=== PATIENT | male | born 1970 | race Caucasian/White ===

== ENCOUNTER 2016-03-26 07:40 | Emergency (ER) | payer BC ==
[2016-03-26] MEDS ORDERED: ONDANSETRON HCL INJ/PF 4 MG/2 ML SDV IV ONE (08:18)
[2016-03-26] MEDS ORDERED: KETOROLAC TROMETHAMINE INJ/PF 30 MG/1 ML SDV IV ONE (08:18)
--- NOTE | 2016-03-26 08:19 | ER Document Report ---
ED GI/ - General Chief Complaint: Urinary Problem Stated Complaint: PAINFUL URINATION Mode of Arrival: Ambulatory Information source: Patient Notes: Patient complains of pain to right lower pelvic area that started around 6 this morning. Patient does report some urinary frequency and hematuria. Patient additionally complains of nausea but denies any vomiting or diarrhea. Patient denies any fever. Patient does report a previous history of kidney stones and is concerned about that today. Patient states he was last treated for kidney stones over 3 years ago. TRAVEL OUTSIDE OF THE [place] IN LAST 30 DAYS: No - HPI Patient complains to provider of: Abdominal pain. No: Testicular pain, Vomiting Onset: This morning Timing/Duration: Gradual Quality of pain: Achy Pain Level: 3 Location: RLQ Associated symptoms: Dysuria, Nausea, Urinary frequency. denies: Dizzy, Fever, Loss of appetite, Urinary hesitancy, Vomiting Exacerbated by: Denies Relieved by: Denies Similar symptoms previously: Yes - kidney stones Recently seen / treated by doctor: No - Related Data Allergies/Adverse Reactions: No Known Allergies Allergy (Verified 03/26/16 07:45) Past Medical History - General Information source: Patient - Social History Smoking Status: Never Smoker Chew tobacco use (# tins/day): No Frequency of alcohol use: None Drug Abuse: None Occupation: [employer] Family History: CAD - Father [place] at 40's. CAD, CABG Patient has suicidal ideation: No Patient has homicidal ideation: No - Past Medical History Cardiac Medical History: Reports: Hx Hypercholesterolemia, Hx Hypertension Pulmonary Medical History: Reports: Hx Asthma Denies: Hx Tuberculosis Renal/ Medical History: Reports: Hx Kidney Stones Psychiatric Medical History: Reports: Hx Anxiety Past Surgical History: Reports: Other - Vasectomy - Immunizations Hx Diphtheria, Pertussis, Tetanus Vaccination: Yes Review of Systems - Review of Systems Constitutional: No symptoms reported. denies: Fever, Recent illness EENT: No symptoms reported Cardiovascular: No symptoms reported Respiratory: No symptoms reported Gastrointestinal: Abdominal pain, Nausea. denies: Vomiting Genitourinary: Dysuria, Frequency, Flank pain, Hematuria Male Genitourinary: No symptoms reported Musculoskeletal: Back pain Skin: No symptoms reported Hematologic/Lymphatic: No symptoms reported Neurological/Psychological: No symptoms reported Physical Exam - Vital signs Vitals: Temp Pulse Resp BP Pulse Ox 97.8 F 67 18 150/93 H 96 03/26/16 07:46 03/26/16 07:46 03/26/16 07:46 03/26/16 07:46 03/26/16 07:46 - General General appearance: Appears well, Alert In distress: None - Respiratory Respiratory status: No respiratory distress Chest status: Nontender Breath sounds: Normal. No: Rales, Rhonchi, Stridor, Wheezing Chest palpation: Normal - Cardiovascular Rhythm: Regular Heart sounds: S1 appreciated, S2 appreciated Murmur: No - Abdominal Inspection: Obese Distension: No distension Bowel sounds: Normal Tenderness: Tender - Suprapubic, right lower pelvic tenderness. No: McBurney's point, Guarding Organomegaly: No organomegaly - Back Back: CVA tenderness - Mild right - Extremities General upper extremity: Normal inspection, Normal strength General lower extremity: Normal inspection, Normal strength - Neurological Neuro grossly intact: Yes Cognition: Normal Orientation: AAOx4 [place] Coma Scale Eye Opening: Spontaneous [place] Coma Scale Verbal: Oriented [place] Coma Scale Motor: Obeys Commands [place] Coma Scale Total: 15 - Psychological Associated symptoms: Normal affect, Normal mood - Skin Skin Temperature: Warm Skin Moisture: Dry Skin Color: Normal Course - Re-evaluation Re-evalutation: 03/26/16 10:14 pt reports pain improved after toradol injection. Pt states pain to right lower pelvis radiates to r flank. Pt declines additional pain medication at this time. 03/26/16 13:37 Patient with personal history of renal stones, patient with urinary frequency, hematuria, flank and right lower pelvic pain. Patient without McBurney's point tenderness. Patient's abdomen currently soft and nontender at this time. Suspect patient's symptoms most likely related to kidney stone. Patient given good return precautions and discussed worsening signs or symptoms that [facility] - Vital Signs Vital signs: Temp Pulse Resp BP Pulse Ox 97.7 F 58 L 20 121/73 99 03/26/16 12:55 03/26/16 12:55 03/26/16 12:55 03/26/16 12:55 03/26/16 12:55 - Laboratory Result Diagrams: 03/26/16 08:33 03/26/16 08:33 Laboratory results interpreted by me: 03/26/16 03/26/16 08:10 08:33 RBC 6.51 H MCV 76 L MCH 25.2 L RDW 17.3 H Urine Protein 100 H Urine Blood LARGE H Labs- Entire Visit 03/26/16 03/26/16 03/26/16 08:10 08:33 08:33 WBC 10.5 RBC 6.51 H Hgb 16.4 Hct 49.2 MCV 76 L MCH 25.2 L MCHC 33.4 RDW 17.3 H Plt Count 228 Seg Neutrophils % 73.4 Lymphocytes % 17.5 Monocytes % 8.3 Eosinophils % 0.3 Basophils % 0.5 Absolute Neutrophils 7.7 Absolute Lymphocytes 1.8 Absolute Monocytes 0.9 Absolute Eosinophils 0.0 Absolute Basophils 0.0 Sodium 142.8 Potassium 4.3 Chloride 101 Carbon Dioxide 30 Anion Gap 12 BUN 7 Creatinine 0.72 Est GFR ( Amer) > 60 Est GFR (Non-Af Amer) > 60 Glucose 108 Calcium 9.4 Total Bilirubin 0.4 Direct Bilirubin 0.0 AST 28 ALT 66 Alkaline Phosphatase 86 Total Protein 7.2 Albumin 4.0 Urine Color YELLOW Urine Appearance SLIGHTLY-CLOUDY Urine pH 5.0 Ur Specific [place] 1.029 Urine Protein 100 H Urine Glucose (UA) NEGATIVE Urine Ketones NEGATIVE Urine Blood LARGE H Urine Nitrite NEGATIVE Urine Bilirubin NEGATIVE Urine Urobilinogen NEGATIVE Ur Leukocyte Esterase NEGATIVE Urine WBC (Auto) 4 Urine RBC (Auto) 99 Squamous Epi Cells Auto 2 Urine Mucus (Auto) MANY Urine Ascorbic Acid NEGATIVE 03/26/16 15:59 - Diagnostic Test Radiology reviewed: Reports reviewed Discharge - Discharge Clinical Impression: Hematuria, History of kidney stones, Flank pain Abdominal pain Qualifiers: Abdominal location: unspecified location Qualified Code(s): R10.9 - Unspecified abdominal pain Condition: Stable Disposition: HOME, SELF-CARE Instructions: Observation for Appendicitis ([facility]), Flank Pain ([facility]) Additional Instructions: Return immediately for any new or worsening symptoms Followup with your primary care provider, call tomorrow to make a followup appointment Follow up with a urologist for further evaluation, call today to make a follow- up appointment Your blood pressure was elevated today, recheck with her primary doctor in 1-2 days to have this reevaluated KIDNEY STONE: You are passing or have passed a kidney stone. These stones are usually due to increased calcium or uric acid concentrations in your urine. Stones within the kidney itself are not painful. The pain occurs as the stone leaves the kidney to pass down the long tube, called the ureter, leading to the bladder. If the stone is small, it will usually pass by itself. Most patients can pass the stone at home. You will usually receive medications for pain, nausea or vomiting, and sometimes a medication to assist in passing the kidney stone. However, if the pain is very severe or if vomiting prevents you from taking oral pain medications, you may need to return for further treatment. Drink three or four quarts of fluids per day. You will be given pain medication (if needed) and urine strainers. Strain all your urine to see if the stone passes. If your doctor has asked you to bring the stone in for analysis, return with the stone once it has passed. Return if pain or vomiting become severe, if you develop a high fever, if you are unable to pass your urine, or if other unusual symptoms occur. TORADOL INJECTION: You have been given an injection of ketorolac tromethamine (Toradol). This is an excellent, safe drug for pain control. It also has potent antiinflammatory action. You should have significant pain relief within about one hour. Toradol is not addicting and is non-sedating. It does not interfere with driving or work. Call or return if you develop itching, hives, shortness of breath, or rash. ANTINAUSEA MEDICATION: You have been given a medication to suppress nausea and vomiting. This type of medication can be given as a shot, pill, or suppository. It will usually last for many hours. Pills and shots usually last six to eight hours, suppositories last about 12 hours. For the typical illness, only one or two doses of the medication may be necessary. Mild lightheadedness may occur. This type of medicine can cause drowsiness. Do not drive or operate dangerous machinery while under its influence. Do not mix with alcohol. See your doctor at once if you have muscle spasms or tightness, or uncontrollable motions (particularly of the neck, mouth, or jaw). Persistent vomiting or severe lightheadedness should also be evaluated by the physician. ORAL NARCOTIC MEDICATION: You have been given a prescription for pain control. This medication is a narcotic. It's best taken with food, as nausea can result if taken on an empty stomach. Don't operate machinery or drive within six hours of taking this medication. Do not combine this medicine with alcohol, or with any medication which can cause sedation (such as cold tablets or sleeping pills) unless you get permission from the physician. Narcotics tend to cause constipation. If possible, drink plenty of fluids and eat a diet high in fiber and fruits. Please be aware that prescription narcotics also have the potential for abuse. People become addicted to these medications because of the general sense of wellbeing that they induce. This feeling along with a significant reduction in tension, anxiety, and aggression provides a stimulating seductive quality to these drugs. Once your pain is under control, we encourage you to discard your unused narcotics. FOLLOW-UP CARE: If you have been referred to a physician for follow-up care, call the physician s office for an appointment as you were instructed or within the next two days. If you experience worsening or a significant change in your symptoms, notify the physician immediately or return to the Emergency Department at any time for re-evaluation. Prescriptions: Ondansetron HCl [Zofran 4 mg Tablet] 1 - 2 tab PO Q6 PRN #15 tablet PRN Reason: Oxycodone HCl/Acetaminophen [Percocet 5-325 mg Tablet] 1 tab PO ASDIR PRN #15 tablet PRN Reason: Forms: Return to Work Referrals: [facility] [Provider Group] - Follow up as needed ADOLFO WILLARD MD [ACTIVE STAFF] - Follow up in 3-5 days [facility] [Provider Group] - Follow up tomorrow
[2016-03-26 08:45] LABS: APPEARANCE,URINE SLIGHTLY-CLOUDY; BILIRUBIN,URINE NEGATIVE (NEGATIVE); GLUCOSE, URINE NEGATIVE (NEGATIVE)
[2016-03-26 08:46] LABS: KETONES,URINE NEGATIVE (NEGATIVE); LEUKOCYTE ESTERASE,URINE NEGATIVE (NEGATIVE); NITRITE,URINE NEGATIVE (NEGATIVE); PROTEIN,URINE 100 mg/dL (NEGATIVE); URINE SPECIFIC GRAVITY 1.029; UROBILINOGEN,URINE NEGATIVE mg/dL (<2.0)
[2016-03-26 08:52] LABS: ABSOLUTE LYMPHOCYTES (AUTO) 1.8 10^3/uL (0.5-4.7); ABSOLUTE MONOCYTES (AUTO) 0.9 10^3/uL (0.1-1.4); ABSOLUTE NEUT (AUTO) 7.7 10^3/uL (1.7-8.2); BASOPHILS % (AUTO) 0.5 % (0-2); EOSINOPHILS % (AUTO) 0.3 % (0-6); HEMATOCRIT 49.2 % (37.9-51.0); HEMOGLOBIN 16.4 g/dL (13.5-17.0); LYMPHOCYTES % (AUTO) 17.5 % (13-45); MEAN CORPUSCULAR HEMOGLOBIN 25.2 pg (27.0-33.4); MEAN CORPUSCULAR HGB CONC 33.4 g/dL (32.0-36.0); MEAN CORPUSCULAR VOLUME 76 fl (80-97); MONOCYTES % (AUTO) 8.3 % (3-13); RED BLOOD COUNT 6.51 10^6/uL (4.35-5.55); RED CELL DISTRIBUTION WIDTH 17.3 % (11.5-14.0); SEGMENTED NEUTROPHILS % (AUTO) 73.4 % (42-78); WHITE BLOOD COUNT 10.5 10^3/uL (4.0-10.5)
[2016-03-26 09:16] LABS: ALANINE AMINOTRANSFERASE 66 U/L (21-72); ALKALINE PHOSPHATASE 86 U/L (38-126); ANION GAP 12 (5-19); ASPARTATE AMINO TRANSFERASE 28 U/L (17-59); BILIRUBIN,TOTAL 0.4 mg/dL (0.2-1.3); BLOOD UREA NITROGEN 7 mg/dL (7-20); CALCIUM 9.4 mg/dL (8.4-10.2); CARBON DIOXIDE 30 mmol/L (22-30); CHLORIDE 101 mmol/L (98-107); CREATININE RESULT 0.72 mg/dL (0.52-1.25); GLUCOSE 108 mg/dL (75-110); POTASSIUM 4.3 mmol/L (3.6-5.0); SODIUM 142.8 mmol/L (137-145); TOTAL PROTEIN 7.2 g/dL (6.3-8.2)
[2016-03-26] MEDS ORDERED: NORMAL SALINE 1000 ML 1,000 ML IV ONE (11:06)
[2016-03-26 12:56] VITALS: BP 121/73
== END 2016-03-26 14:04 | disposition home or self-care (01) ==
LOC: ER 07:40
DX: R31.9 Hematuria, unspecified (principal); R10.9 Unspecified abdominal pain; R30.0 Dysuria; R35.0 Frequency of micturition; R11.0 Nausea; I10 Essential (primary) hypertension; E78.00 Pure hypercholesterolemia, unspecified; Z87.442 Personal history of urinary calculi
CPT/HCPCS: 99284; 96361; 96374; 96375; 36415; 85025; 80053; 81001; 76770; J1885; J2405; J7030

== ENCOUNTER 2016-12-13 15:51 | Emergency (ER) | payer BC ==
--- NOTE | 2016-12-13 17:01 | ER Document Report ---
ED Medical Screen (RME) - General Chief Complaint: Chest Pain Stated Complaint: CHEST PAIN Time Seen by Provider: 12/13/16 17:00 Notes: Patient reports constant left-sided chest pain since Saturday. States it is worse with exertion. And better with rest. He states he has no previous history of cardiac disease. He has had a negative stress test in the past approximately 3 years ago. TRAVEL OUTSIDE OF THE [place] IN LAST 30 DAYS: No - Related Data Allergies/Adverse Reactions: No Known Allergies Allergy (Verified 12/13/16 16:01) Past Medical History - Social History Chew tobacco use (# tins/day): No Frequency of alcohol use: Social Drug Abuse: None - Past Medical History Cardiac Medical History: Reports: Hx Hypercholesterolemia, Hx Hypertension Pulmonary Medical History: Reports: Hx Asthma Denies: Hx Tuberculosis Renal/ Medical History: Reports: Hx Kidney Stones. Denies: Hx Peritoneal Dialysis Psychiatric Medical History: Reports: Hx Anxiety Past Surgical History: Reports: Other - Vasectomy - Immunizations Hx Diphtheria, Pertussis, Tetanus Vaccination: No Physical Exam - Vital signs Vitals: Temp Pulse Resp BP Pulse Ox 99.2 F 99 18 163/90 H 97 12/13/16 16:07 12/13/16 16:07 12/13/16 16:07 12/13/16 16:07 12/13/16 16:07 Course - Vital Signs Vital signs: Temp Pulse Resp BP Pulse Ox 99.2 F 99 18 163/90 H 97 12/13/16 16:07 12/13/16 16:07 12/13/16 16:07 12/13/16 16:07 12/13/16 16:07
[2016-12-13 17:25] LABS: ABSOLUTE BASOPHILS # (AUTO) 0.1 10^3/uL (0.0-0.2); ABSOLUTE MONOCYTES (AUTO) 1.2 10^3/uL (0.1-1.4); ABSOLUTE NEUT (AUTO) 8.3 10^3/uL (1.7-8.2); BASOPHILS % (AUTO) 0.6 % (0-2); EOSINOPHILS % (AUTO) 0.2 % (0-6); HEMATOCRIT 40.8 % (37.9-51.0); HEMOGLOBIN 13.7 g/dL (13.5-17.0); HGB HCT DIFFERENCE 0.3; LYMPHOCYTES % (AUTO) 24.2 % (13-45); MEAN CORPUSCULAR HEMOGLOBIN 25.6 pg (27.0-33.4); MEAN CORPUSCULAR HGB CONC 33.6 g/dL (32.0-36.0); MEAN CORPUSCULAR VOLUME 76 fl (80-97); MONOCYTES % (AUTO) 9.3 % (3-13); RED BLOOD COUNT 5.37 10^6/uL (4.35-5.55); RED CELL DISTRIBUTION WIDTH 16.1 % (11.5-14.0); SEGMENTED NEUTROPHILS % (AUTO) 65.7 % (42-78); WHITE BLOOD COUNT 12.6 10^3/uL (4.0-10.5)
--- NOTE | 2016-12-13 17:33 | RADIOLOGY REPORT (SQ) ---
EXAM DESCRIPTION: CHEST PA/LAT COMPLETED DATE/TIME: 12/13/2016 5:09 pm REASON FOR STUDY: cp COMPARISON: 02/19/2014 EXAM PARAMETERS: NUMBER OF VIEWS: two views TECHNIQUE: Digital Frontal and Lateral radiographic views of the chest acquired. RADIATION DOSE: NA LIMITATIONS: none FINDINGS: LUNGS AND PLEURA: No opacities, masses or pneumothorax. No pleural effusion. MEDIASTINUM AND HILAR STRUCTURES: No masses or contour abnormalities. HEART AND VASCULAR STRUCTURES: Heart normal size. No evidence for failure. BONES: No acute findings. HARDWARE: None in the chest. OTHER: No other significant finding. IMPRESSION: NO SIGNIFICANT RADIOGRAPHIC FINDING IN THE CHEST. TECHNICAL DOCUMENTATION: JOB ID: [id number] [employer]- All Rights Reserved
[2016-12-13 17:39] LABS: ALANINE AMINOTRANSFERASE 44 U/L (21-72); ALBUMIN 4.4 g/dL (3.5-5.0); ALKALINE PHOSPHATASE 86 U/L (38-126); ANION GAP 13 (5-19); ASPARTATE AMINO TRANSFERASE 17 U/L (17-59); BILIRUBIN,DIRECT 0.3 mg/dL (0.0-0.4); BILIRUBIN,TOTAL 0.4 mg/dL (0.2-1.3); BLOOD UREA NITROGEN 11 mg/dL (7-20); CALCIUM 9.3 mg/dL (8.4-10.2); CARBON DIOXIDE 23 mmol/L (22-30); CHLORIDE 106 mmol/L (98-107); CREATININE RESULT 0.69 mg/dL (0.52-1.25); GLUCOSE 112 mg/dL (75-110); POTASSIUM 3.6 mmol/L (3.6-5.0); SODIUM 141.5 mmol/L (137-145); TOTAL PROTEIN 7.1 g/dL (6.3-8.2)
--- NOTE | 2016-12-13 18:28 | ER Document Report ---
ED Cardiac - General Chief Complaint: Chest Pain Stated Complaint: CHEST PAIN Time Seen by Provider: 12/13/16 17:00 Notes: The patient is a 46-year-old male, past medical history hypertension, HLD, presents with 1 week of intermittent left-sided chest pain that feels like a pounding sensation. Today he started to feel nauseous. He had similar symptoms 3 years ago and had a negative stress test at that time. Took a baby ASA earlier today Patient denies shortness of breath, leg swelling, cough, vomiting, abdominal pain, fevers, hemoptysis or back pain. TRAVEL OUTSIDE OF THE [place] IN LAST 30 DAYS: No - Related Data Allergies/Adverse Reactions: No Known Allergies Allergy (Verified 12/13/16 16:01) Past Medical History - General Information source: Patient - Social History Smoking Status: Never Smoker Chew tobacco use (# tins/day): No Frequency of alcohol use: Social Drug Abuse: None Family History: CAD - Father [place] at 40's. CAD, CABG - Past Medical History Cardiac Medical History: Reports: Hx Hypercholesterolemia, Hx Hypertension Pulmonary Medical History: Reports: Hx Asthma Denies: Hx Tuberculosis Renal/ Medical History: Reports: Hx Kidney Stones. Denies: Hx Peritoneal Dialysis Psychiatric Medical History: Reports: Hx Anxiety Past Surgical History: Reports: Other - Vasectomy - Immunizations Hx Diphtheria, Pertussis, Tetanus Vaccination: No Review of Systems - Review of Systems Notes: REVIEW OF SYSTEMS: CONSTITUTIONAL: -fevers, -chills EENT: -eye pain, -difficulty swallowing, -nasal congestion CARDIOVASCULAR: +chest pain, -syncope. RESPIRATORY: -cough, -SOB GASTROINTESTINAL: -abdominal pain, +nausea, -vomiting, -diarrhea GENITOURINARY: -dysuria, -hematuria MUSCULOSKELETAL: -back pain, -neck pain SKIN: -rash or skin lesions. HEMATOLOGIC: -easy bruising or bleeding. LYMPHATIC: -swollen, enlarged glands. NEUROLOGICAL: -altered mental status or loss of consciousness, -headache, - neurologic symptoms PSYCHIATRIC: -anxiety, -depression. ALL OTHER SYSTEMS REVIEWED AND NEGATIVE. Physical Exam - Vital signs Vitals: Temp Pulse Resp BP Pulse Ox 99.2 F 99 18 163/90 H 97 12/13/16 16:07 12/13/16 16:07 12/13/16 16:07 12/13/16 16:07 12/13/16 16:07 - Notes Notes: PHYSICAL EXAMINATION: GENERAL: Well-appearing, well-nourished and in no acute distress. HEAD: Atraumatic, normocephalic. EYES: Pupils equal round and reactive to light, extraocular movements intact, sclera anicteric, conjunctiva are normal. ENT: nares patent, oropharynx clear without exudates. Moist mucous membranes. NECK: Normal range of motion, supple without lymphadenopathy LUNGS: Breath sounds clear to auscultation bilaterally and equal. No wheezes rales or rhonchi. HEART: Regular rate and rhythm without murmurs ABDOMEN: Soft, nontender, normoactive bowel sounds. No guarding, no rebound. No masses appreciated. EXTREMITIES: Normal range of motion, no pitting or edema. No cyanosis. NEUROLOGICAL: Cranial nerves grossly intact. Normal speech, normal gait. Normal sensory and motor exams. PSYCH: Normal mood, normal affect. SKIN: Warm, Dry, normal turgor, no rashes or lesions noted. Course - Re-evaluation Re-evalutation: Patient appears well. His HEART score is 3. CXR and labs are unremarkable. He is PERC negative and symptoms are atypical for aortic dissection at this time. Instructed patient that he must follow-up with his primary care physician and mortar carrier for a stress test tomorrow. Given very strict return precautions and he understands. - Vital Signs Vital signs: Temp Pulse Resp BP Pulse Ox 99.2 F 99 19 111/68 97 12/13/16 16:07 12/13/16 16:07 12/13/16 19:16 12/13/16 19:16 12/13/16 19:16 - Laboratory Result Diagrams: 12/13/16 17:05 12/13/16 17:05 Laboratory results interpreted by me: 12/13/16 12/13/16 17:05 17:05 WBC 12.6 H MCV 76 L MCH 25.6 L RDW 16.1 H Absolute Neutrophils 8.3 H Glucose 112 H - Diagnostic Test Radiology reviewed: Image reviewed, Reports reviewed Radiology results interpreted by me: CXR: NAD - EKG Interpretation by Me EKG shows normal: Sinus rhythm, [place], Intervals, QRS Complexes, ST-T Waves Rate: Normal When compared to previous EKG there are: No significant change Discharge - Discharge Clinical Impression: Chest pain Qualifiers: Chest pain type: unspecified Qualified Code(s): R07.9 - Chest pain, unspecified Condition: Stable Disposition: HOME, SELF-CARE Additional Instructions: You must follow-up with your primary care physician and mortar carrier tomorrow for further evaluation and treatment, including a stress test. CHEST PAIN OF UNCLEAR CAUSE: The exact cause of your chest pain isn't clear. Fortunately, there is no evidence of a dangerous medical condition. Further testing may be required to find the source of the pain. Most often, we find that this pain is coming from the chest wall -- the muscles or rib joints in the chest. But chest pain can come from the lung and lung lining, the esophagus, the heart valves or heart lining, and even the stomach or gallbladder. Rest. Eat lightly until the pain is gone. We may prescribe medicine for pain and inflammation. You should call the physician immediately if the pain radiates to the shoulder, jaw or arms; if you start to run a fever or develop a cough; or if you develop shortness of breath, or other new or alarming symptoms. NORMAL EXAM AND WORKUP: At this time, your examination and workup show no significant abnormality. No significant abnormal physical findings were noted. All laboratory, EKG, and imaging (x-ray, CT scans, ultrasound) studies that were ordered show no significant abnormality. Although your examination and all studies that were ordered showed no significant abnormal finding, there are no examinations and no studies that are 100% accurate. There is always the possibility that some abnormality could exist and not be detected with physical examination or within the limits and capabilities of laboratory and other studies. You should return or follow up as you were instructed on your visit today for further evaluation if your symptoms do not resolve. CHEST WALL PAIN: Your chest pain may be coming from the chest wall. This is often caused by straining the muscles or joints in the chest during physical activity, direct trauma, coughing, or vigorous vomiting. Persons with arthritis are especially prone to this type of pain, due to inflammation of the cartilage joints near the breast bone. Occasionally, no cause can be found. Rest from strenuous physical activity. This kind of chest pain is usually made worse by movement of the chest. Depending on the symptoms, we may prescribe medicine for pain, muscle relaxation, and antiinflammatory effects. If the pain is new, and seems to be due to muscle strain, cold packs can help. Otherwise, apply gentle warmth to the painful area for 15 minutes every hour or two. You should call contact the doctor immediately if things change. Further evaluation is needed if you develop a fever or cough, if the nature of the pain changes, or if you become short of breath. ANGINA EPISODE: Your physician has diagnosed the pain you experienced as an episode of angina. Angina occurs when a portion of the heart muscle temporarily lacks oxygen. It does not cause any permanent heart damage, but serves as a warning. Hospitalization is not necessary now. Evaluation of your cardiac condition , and medical therapy for angina will be necessary. It's important you be sure to keep all appointments and take medication exactly as prescribed. Angina is usually treated with a type of "nitrate" medication. This is available as ointment, pills, or sublingual (under the tongue) tablets. Depending on your clinical situation, other medications may be added to help control angina. These may include beta blockers or calcium blockers. If episodes of angina are occurring with increased frequency, or if chest pain lasts longer than 15 minutes or does not respond to nitroglycerin, you must seek emergency medical care immediately. ASPIRIN: Aspirin has been shown to have a beneficial effect on blood circulation by reducing the clotting effect of platelets in the blood. These beneficial effects can be achieved by taking just a single baby (81 mg) aspirin a day. It is recommended that any person over the age of forty take a single baby aspirin every day for heart and brain circulation, unless you are allergic to aspirin or have some significant bleeding disorder. It is strongly recommended that people who have proven cardiac or blood circulation disturbances should take a baby aspirin every day. NITRATES: Nitroglycerin and related longer-acting nitrate medications are used to prevent or treat attacks of angina. These medicines dilate blood vessels, decreasing the work of the heart, and improving its supply of oxygen. Many different forms are available, including sublingual tablets (used under the tongue), sprays, skin patches, and long-acting pills. If the particular form of medication you have been given is not working well for you, contact your doctor. Long-acting forms: Take exactly as prescribed. Sudden stopping of medication can provoke increased attacks. Sublingual tabs or spray: A headache will usually occur with use. Sit or lie while waiting for the pain to go away. If angina doesn't respond to three doses (five minutes apart), call for emergency assistance. FOLLOW-UP CARE: If you have been referred to a physician for follow-up care, call the physician s office for an appointment as you were instructed or within the next two days. If you experience worsening or a significant change in your symptoms, notify the physician immediately or return to the Emergency Department at any time for re-evaluation. Forms: Return to Work, Parent Work Note Referrals: JACY GREGORY MD [ACTIVE STAFF] - Follow up as needed
[2016-12-13] MEDS ORDERED: ASPIRIN 81 MG TABLET, CHEWABLE PO ONE (18:33)
[2016-12-13] MEDS ORDERED: ONDANSETRON 4 MG TAB.RAPDIS PO ONE (18:33)
[2016-12-13] MEDS ORDERED: NITROGLYCERIN 0.4 MG/TAB 25 TAB/BOTTLE SL PRN (18:33)
[2016-12-13 20:50] VITALS: BP 120/76
--- NOTE | 2016-12-14 03:56 | EKG REPORT ---
SEVERITY:- BORDERLINE ECG - SINUS RHYTHM BORDERLINE T WAVE ABNORMALITIES : Confirmed by: Lashawn Wynn MD 14-Dec-2016 03:56:01
== END 2016-12-13 20:42 | disposition home or self-care (01) ==
LOC: ER 15:51
DX: R07.9 Chest pain, unspecified (principal); I10 Essential (primary) hypertension; E78.5 Hyperlipidemia, unspecified
CPT/HCPCS: 93005; 99285; 36415; 85025; 80053; 84484; 71020; 93010; S0119

== ENCOUNTER 2018-01-12 16:17 | Emergency (ER) | payer BC ==
[2018-01-12] MEDS ORDERED: ASPIRIN 81 MG TABLET, CHEWABLE PO ONE (16:40)
[2018-01-12 16:54] LABS: ABSOLUTE BASOPHILS # (AUTO) 0.1 10^3/uL (0.0-0.2); ABSOLUTE EOSINOPHILS # (AUTO) 0.1 10^3/uL (0.0-0.6); ABSOLUTE MONOCYTES (AUTO) 1.1 10^3/uL (0.1-1.4); ABSOLUTE NEUT (AUTO) 6.8 10^3/uL (1.7-8.2); BASOPHILS % (AUTO) 0.7 % (0-2); HEMATOCRIT 44.3 % (37.9-51.0); HEMOGLOBIN 14.2 g/dL (13.5-17.0); LYMPHOCYTES % (AUTO) 19.6 % (13-45); MEAN CORPUSCULAR HEMOGLOBIN 22.1 pg (27.0-33.4); MEAN CORPUSCULAR HGB CONC 32.1 g/dL (32.0-36.0); MEAN CORPUSCULAR VOLUME 69 fl (80-97); PLATELET COUNT 270 10^3/uL (150-450); RED BLOOD COUNT 6.44 10^6/uL (4.35-5.55); SEGMENTED NEUTROPHILS % (AUTO) 67.7 % (42-78); TOTAL CELLS COUNTED % (AUTO) 100 %; WHITE BLOOD COUNT 10.1 10^3/uL (4.0-10.5)
[2018-01-12 17:18] LABS: ALANINE AMINOTRANSFERASE 49 U/L (21-72); ALBUMIN 4.2 g/dL (3.5-5.0); ALKALINE PHOSPHATASE 86 U/L (38-126); ANION GAP 14 (5-19); ASPARTATE AMINO TRANSFERASE 33 U/L (17-59); BILIRUBIN,DIRECT 0.2 mg/dL (0.0-0.4); BILIRUBIN,TOTAL 0.5 mg/dL (0.2-1.3); BLOOD UREA NITROGEN 9 mg/dL (7-20); CALCIUM 9.5 mg/dL (8.4-10.2); CARBON DIOXIDE 24 mmol/L (22-30); CHLORIDE 104 mmol/L (98-107); CREATINE KINASE 53 U/L (55-170); GLUCOSE 118 mg/dL (75-110); POTASSIUM 4.2 mmol/L (3.6-5.0); SODIUM 141.9 mmol/L (137-145); TOTAL PROTEIN 7.5 g/dL (6.3-8.2)
--- NOTE | 2018-01-12 17:24 | RADIOLOGY REPORT (SQ) ---
EXAM DESCRIPTION: CHEST SINGLE VIEW COMPLETED DATE/TIME: 01/12/2018 5:06 pm REASON FOR STUDY: cp COMPARISON: Chest x-ray 12/13/2016. EXAM PARAMETERS: NUMBER OF VIEWS: One view. TECHNIQUE: Single frontal radiographic view of the chest acquired. RADIATION DOSE: NA LIMITATIONS: None. FINDINGS: LUNGS AND PLEURA: No consolidation, pneumothorax or pleural effusion. MEDIASTINUM AND HILAR STRUCTURES: No masses. Contour normal. HEART AND VASCULAR STRUCTURES: Heart normal in size. Normal vasculature. BONES: No acute findings. HARDWARE: None in the chest. IMPRESSION: NO ACUTE RADIOGRAPHIC FINDING IN THE CHEST. TECHNICAL DOCUMENTATION: JOB ID: [id number] [employer]- All Rights Reserved Reading location - IP/workstation name: [email or web address]
[2018-01-12 17:31] LABS: TROPONIN I < 0.012 ng/mL
--- NOTE | 2018-01-12 17:42 | ER Document Report ---
ED General - General Mode of Arrival: Ambulatory Information source: Patient TRAVEL OUTSIDE OF THE [place] IN LAST 30 DAYS: No <MARISELA YEAGER - Last Filed: 01/12/18 19:28> <[place] - Last Filed: 01/12/18 23:38> - General Chief Complaint: Chest Pain Stated Complaint: CHEST PAIN Time Seen by Provider: 01/12/18 17:11 Notes: Patient is a 47 year old male presenting to the emergency department complaining of chest pain onset today and general malaise onset last night. Patient states he was not feeling well last night and developed chest pain this morning. He states he was originally very tired when he got up this morning and began to have constant sternal chest pain described as aching that radiated into his left arm. He states he then took a shower when he became so fatigued he laid on the shower floor. Patient currently describes his chest pain as a 5/ 10. He also complains of nausea and diaphoresis. He denies any shortness of breath. Patient mentions having a stress test performed last year by Dr. Hunt in [place] which proved to be normal. He mentions his father having his first TN at the age of 40. (MARISELA YEAGER) - Related Data Allergies/Adverse Reactions: No Known Allergies Allergy (Verified 12/13/16 16:01) Past Medical History - General Information source: Patient - Social History Smoking Status: Never Smoker Cigarette use (# per day): No Chew tobacco use (# tins/day): No Frequency of alcohol use: Occasional Drug Abuse: None Family History: CAD - Father [place] at 40's. CAD, CABG Patient has suicidal ideation: No Patient has homicidal ideation: No - Past Medical History Cardiac Medical History: Reports: Hx Hypercholesterolemia, Hx Hypertension Pulmonary Medical History: Reports: Hx Asthma Renal/ Medical History: Reports: Hx Kidney Stones Psychiatric Medical History: Reports: Hx Anxiety Past Surgical History: Reports: Other - Vasectomy - Immunizations Hx Diphtheria, Pertussis, Tetanus Vaccination: No <MARISELA YEAGER - Last Filed: 01/12/18 19:28> Review of Systems - Review of Systems Constitutional: See HPI, Diaphoresis EENT: No symptoms reported Cardiovascular: No symptoms reported, See HPI, Chest pain Respiratory: No symptoms reported Gastrointestinal: See HPI, Nausea Genitourinary: No symptoms reported Male Genitourinary: No symptoms reported Musculoskeletal: See HPI Skin: No symptoms reported Hematologic/Lymphatic: No symptoms reported Neurological/Psychological: No symptoms reported -: Yes All other systems reviewed and negative <MARISELA YEAGER - Last Filed: 01/12/18 19:28> Physical Exam <MARISELA YEAGER - Last Filed: 01/12/18 19:28> <LUKE MARTINEZ - Last Filed: 01/12/18 23:38> - Vital signs Vitals: Temp Pulse Resp BP Pulse Ox 98.2 F 94 18 169/89 H 96 01/12/18 16:27 01/12/18 16:27 01/12/18 16:27 01/12/18 16:27 01/12/18 16:27 - Notes Notes: GENERAL: Alert, interacts well. No acute distress. HEAD: Normocephalic, atraumatic. EYES: Pupils equal, round, and reactive to light. Extraocular movements intact. ENT: Oral mucosa moist, tongue midline. NECK: Full range of motion. Supple. Trachea midline. LUNGS: Clear to auscultation bilaterally, no wheezes, rales, or rhonchi. No respiratory distress. Reproducible tenderness to palpation to the sternum and left ribs. HEART: Mild tachycardia. No murmurs, gallops, or rubs. ABDOMEN: Soft, mild epigastric tenderness to palpation. Non-distended. Bowel sounds present in all 4 quadrants. EXTREMITIES: Moves all 4 extremities spontaneously. Trace pitting edema BLE, radial and dorsalis pedis pulses 2/4 bilaterally. No cyanosis. NEUROLOGICAL: Alert and oriented x3. Normal speech. PSYCH: Normal affect, normal mood. SKIN: Warm, dry, normal turgor. No rashes or lesions noted. (MARISELA YEAGER) Course - Laboratory Result Diagrams: 01/12/18 16:40 01/12/18 16:40 <MARISELA YEAGER - Last Filed: 01/12/18 19:28> - Laboratory Result Diagrams: 01/12/18 16:40 01/12/18 16:40 <LUKE MARTINEZ - Last Filed: 01/12/18 23:38> - Re-evaluation Re-evalutation: 01/12/18 22:16 CBC unremarkable, CMP shows unremarkable, cardiac enzymes negative x2, chest x- ray shows no acute process, EKG is nonischemic x2. Pain is persistent after 3 nitroglycerin, he has developed some nausea as well. Patient will be given Zofran and a GI cocktail. GI cocktail did help with his pain and now he just feels tired. 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 Patient was offered observation for a stress test or outpatient stress test, patient will prefer to set up a stress test as an outpatient. Patient is instructed to take ibuprofen 800 mg every 8 hours for the reproducible left-sided chest pain that I suspect is costochondritis but given his risk factors he understands why I think it is prudent to have a stress test performed in the next week. Patient is also instructed to take Zantac 150 mg twice a day until seen by cardiology given the relief that he got from a GI cocktail. (LUKE MARTINEZ) - Vital Signs Vital signs: Temp Pulse Resp BP Pulse Ox 97.6 F 94 19 140/83 H 99 01/12/18 22:57 01/12/18 16:27 01/12/18 22:53 01/12/18 22:54 01/12/18 22:53 - Laboratory Laboratory results interpreted by me: 01/12/18 01/12/18 16:40 16:40 RBC 6.44 H MCV 69 L MCH 22.1 L RDW 20.0 H Glucose 118 H Creatine Kinase 53 L - EKG Interpretation by Me Additional EKG results interpreted by me: 01/12/18 22:18 EKG at 1621 shows sinus rhythm at a rate of 86, normal axis, normal intervals, no ST segment shins, there is T wave flattening in lead III per my interpretation. Repeat EKG at 2141 shows sinus rhythm at a rate of 65, normal axis, normal intervals, no ST segment elevations or depressions, T wave flattening in lead III and aVF per my interpretation. (LUKE MARTINEZ) Discharge <MARISELA YEAGER - Last Filed: 01/12/18 19:28> <LUKE MARTINEZ - Last Filed: 01/12/18 23:38> - Discharge Clinical Impression: Left sided chest pain Condition: Stable Disposition: HOME, SELF-CARE Additional Instructions: I do not know what exactly is causing her chest pain. Tonight we did not see any signs of a heart attack however you do have risk factors for heart disease. It is very important that you follow-up with your primary care physician and her plant pathology teacher and have a stress test within the next week. Please return if your chest pain worsens. Your pain did get better with GI cocktail, you should take Zantac 150 mg twice a day, you may use its generic equivalent, until you see your plant pathology teacher. Your pain was reproducible on examination, you may also have costochondritis which is inflammation of your ribs where they meet your sternum. This can be relieved by ibuprofen 800 mg every 8 hours for the next 4 days. Forms: Return to Work Referrals: TALAT BARRERA MD [Primary Care Provider] - Follow up in 3-5 days Scribe Attestation: 01/12/18 23:38 I personally performed the services described in the documentation, reviewed and edited the documentation which was dictated to the scribe in my presence, and it accurately records my words and actions. (LUKE MARTINEZ) Scribe Documentation - Scribe Written by Wiliam:: Wiliam Dolan, 01/12/2018 18:37 acting as scribe for :: Jana <MARISELA YEAGER - Last Filed: 01/12/18 19:28>
[2018-01-12] MEDS: NITROGLYCERIN 0.4 MG/TAB 25 TAB/BOTTLE SL PRN ×3 (18:07→18:58)
[2018-01-12] MEDS ORDERED: ACETAMINOPHEN 325 MG TABLET PO ONE (18:10)
[2018-01-12] MEDS ORDERED: MAG HYDROX/AL HYDROX/SIMETH SUSP 30 ML UDCUP PO ONE (21:23)
[2018-01-12] MEDS ORDERED: ONDANSETRON HCL INJ/PF 4 MG/2 ML SDV IV ONE (21:23)
[2018-01-12] MEDS ORDERED: LIDOCAINE 2% VISCOUS SOLN 20 ML UDCUP PO ONE (21:23)
[2018-01-12] MEDS ORDERED: METOCLOPRAMIDE HCL ORAL SOLN 10 MG/10 ML UDCUP PO ONE (21:23)
--- NOTE | 2018-01-12 22:05 | EKG REPORT ---
SEVERITY:- NORMAL ECG - SINUS RHYTHM : Confirmed by: Miriam Ortega 12-Jan-2018 22:04:30
--- NOTE | 2018-01-12 22:05 | EKG REPORT ---
SEVERITY:- NORMAL ECG - SINUS RHYTHM : Confirmed by: Miriam Ortega 12-Jan-2018 22:04:17
[2018-01-12 22:58] VITALS: BP 140/83
== END 2018-01-12 22:58 | disposition home or self-care (01) ==
LOC: ER 16:17
DX: R07.9 Chest pain, unspecified (principal); R53.83 Other fatigue; R11.0 Nausea; R61 Generalized hyperhidrosis; R00.0 Tachycardia, unspecified; R60.0 Localized edema; R10.816 Epigastric abdominal tenderness; I10 Essential (primary) hypertension; J45.909 Unspecified asthma, uncomplicated; Z82.49 Family history of ischemic heart disease and other diseases of the circulatory system
CPT/HCPCS: 93005; 99285; 96374; 36415; 82553; 82550; 85025; 80053; 84484; 71045; 93010; J3490; J2405

== ENCOUNTER 2018-07-30 11:25 | Observation (INO) | payer BC ==
[2018-07-30] MEDS ORDERED: ONDANSETRON 4 MG TAB.RAPDIS PO ONE (11:48)
[2018-07-30] MEDS ORDERED: ASPIRIN 81 MG TABLET, CHEWABLE PO ONE (11:48)
--- NOTE | 2018-07-30 11:50 | ER Document Report ---
ED Medical Screen (RME) - General Chief Complaint: Chest Pain Stated Complaint: CHEST PAIN Time Seen by Provider: 07/30/18 11:46 Primary Care Provider: TALAT BARRERA MD [Primary Care Provider] - Follow up as needed Mode of Arrival: Ambulatory Information source: Patient Notes: Patient presents emergency department with complaints of chest pain that radiates down his left arm for the past 24 hours. Reports nausea with the chest pain denies fever vomiting diarrhea. Reports father had a heart attack at early age. Patient denies history of cardiac disease. EKG shows sinus rhythm no change from previous EKG. Reports some shortness of breath yesterday. I have greeted and performed a rapid initial assessment of this patient. A comprehensive ED assessment and evaluation of the patient, analysis of test results and completion of the medical decision making process will be conducted by additional ED providers. Dictation of this chart was performed using voice recognition software; therefore, there may be some unintended grammatical errors. TRAVEL OUTSIDE OF THE [place] IN LAST 30 DAYS: No - Related Data Allergies/Adverse Reactions: No Known Allergies Allergy (Verified 07/30/18 11:26) Past Medical History - Past Medical History Cardiac Medical History: Reports: Hx Hypercholesterolemia, Hx Hypertension Pulmonary Medical History: Reports: Hx Asthma Denies: Hx Tuberculosis Renal/ Medical History: Reports: Hx Kidney Stones. Denies: Hx Peritoneal Dialysis Psychiatric Medical History: Reports: Hx Anxiety Past Surgical History: Reports: Other - Vasectomy - Immunizations Hx Diphtheria, Pertussis, Tetanus Vaccination: No Physical Exam - Vital signs Vitals: Temp Pulse Resp BP Pulse Ox 98.5 F 60 20 145/75 H 97 07/30/18 11:39 07/30/18 11:39 07/30/18 11:39 07/30/18 11:39 07/30/18 11:39 Course - Vital Signs Vital signs: Temp Pulse Resp BP Pulse Ox 98.5 F 60 20 145/75 H 97 07/30/18 11:39 07/30/18 11:39 07/30/18 11:39 07/30/18 11:39 07/30/18 11:39 Doctor's Discharge - Discharge Referrals: TALAT BARRERA MD [Primary Care Provider] - Follow up as needed
[2018-07-30 12:03] LABS: ABSOLUTE BASOPHILS # (AUTO) 0.1 10^3/uL (0.0-0.2); ABSOLUTE EOSINOPHILS # (AUTO) 0.1 10^3/uL (0.0-0.6); ABSOLUTE LYMPHOCYTES (AUTO) 1.8 10^3/uL (0.5-4.7); ABSOLUTE MONOCYTES (AUTO) 0.6 10^3/uL (0.1-1.4); ABSOLUTE NEUT (AUTO) 6.8 10^3/uL (1.7-8.2); BASOPHILS % (AUTO) 0.8 % (0-2); EOSINOPHILS % (AUTO) 1.1 % (0-6); HEMATOCRIT 46.9 % (37.9-51.0); HEMOGLOBIN 15.7 g/dL (13.5-17.0); LYMPHOCYTES % (AUTO) 19.4 % (13-45); MEAN CORPUSCULAR HEMOGLOBIN 26.7 pg (27.0-33.4); MEAN CORPUSCULAR HGB CONC 33.4 g/dL (32.0-36.0); MEAN CORPUSCULAR VOLUME 80 fl (80-97); MONOCYTES % (AUTO) 6.6 % (3-13); PLATELET COUNT 221 10^3/uL (150-450); RED BLOOD COUNT 5.87 10^6/uL (4.35-5.55); SEGMENTED NEUTROPHILS % (AUTO) 72.1 % (42-78); TOTAL CELLS COUNTED % (AUTO) 100 %; WHITE BLOOD COUNT 9.5 10^3/uL (4.0-10.5)
--- NOTE | 2018-07-30 12:13 | RADIOLOGY REPORT (SQ) ---
EXAM DESCRIPTION: CHEST 2 VIEWS COMPLETED DATE/TIME: 07/30/2018 12:02 pm REASON FOR STUDY: cp COMPARISON: 01/12/2018 EXAM PARAMETERS: NUMBER OF VIEWS: two views TECHNIQUE: Digital Frontal and Lateral radiographic views of the chest acquired. RADIATION DOSE: NA LIMITATIONS: none FINDINGS: LUNGS AND PLEURA: No opacities, masses or pneumothorax. No pleural effusion. MEDIASTINUM AND HILAR STRUCTURES: No masses or contour abnormalities. HEART AND VASCULAR STRUCTURES: Heart normal size. No evidence for failure. BONES: No acute findings. HARDWARE: None in the chest. OTHER: No other significant finding. IMPRESSION: NO ACUTE RADIOGRAPHIC FINDING IN THE CHEST. TECHNICAL DOCUMENTATION: JOB ID: [id number]- All Rights Reserved Reading location - IP/workstation name: [email or web address]
[2018-07-30 12:23] LABS: ALANINE AMINOTRANSFERASE 36 U/L (21-72); ALBUMIN 4.2 g/dL (3.5-5.0); ALKALINE PHOSPHATASE 82 U/L (38-126); ANION GAP 10 (5-19); ASPARTATE AMINO TRANSFERASE 16 U/L (17-59); BILIRUBIN,DIRECT 0.2 mg/dL (0.0-0.4); BILIRUBIN,TOTAL 0.5 mg/dL (0.2-1.3); BLOOD UREA NITROGEN 7 mg/dL (7-20); CALCIUM 9.6 mg/dL (8.4-10.2); CARBON DIOXIDE 26 mmol/L (22-30); CHLORIDE 107 mmol/L (98-107); CREATINE KINASE 37 U/L (55-170); GLUCOSE 112 mg/dL (75-110); LIPASE 206.8 U/L (23-300); POTASSIUM 3.7 mmol/L (3.6-5.0); SODIUM 143.4 mmol/L (137-145); TOTAL PROTEIN 7.1 g/dL (6.3-8.2)
[2018-07-30] MEDS ORDERED: NITROGLYCERIN 5 MG (0.2 MG/HR) PATCH.TD24 TD ONE (13:21)
[2018-07-30] MEDS ORDERED: ACETAMINOPHEN 325 MG TABLET PO ONE (13:21)
--- NOTE | 2018-07-30 13:26 | ER Document Report ---
ED Cardiac - General Chief Complaint: Chest Pain Stated Complaint: CHEST PAIN Time Seen by Provider: 07/30/18 11:46 Primary Care Provider: TALAT BARRERA MD [Primary Care Provider] - Follow up as needed Mode of Arrival: Ambulatory Notes: Patient has been experiencing left-sided chest and left arm pain since yesterday. 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 He did not do anything unusual or injure himself in any way. The symptoms began yesterday afternoon around lunchtime. The left arm feels sore and is tingling and pain and tingling goes into the left thumb. It also goes all the way up to his left neck and through into the left shoulder blade or a dull ache.. No history of any neck problems in the past. Patient does have hypertension and is on medication for the same. He has previously been diagnosed with LVH and hypertension no nausea or vomiting. Some shortness of breath and difficulty breathing yesterday but not today. No significant cough or chest congestion. Denies any fevers. Patient was seen here last December for some similar symptoms, but not as severe as they are at this time. He was discharged home on that visit in December being told that his problem was anxiety. Was not given any medication for anxiety. 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 Takes medications for hypertension and cholesterol. Does not take aspirin. Does not smoke. TRAVEL OUTSIDE OF THE [place] IN LAST 30 DAYS: No - Related Data Allergies/Adverse Reactions: No Known Allergies Allergy (Verified 07/30/18 11:26) Past Medical History - General Information source: Patient - Social History Smoking Status: Never Smoker Chew tobacco use (# tins/day): No Frequency of alcohol use: Rare Drug Abuse: None Family History: Reviewed & Not Pertinent, CAD - Father [place] at 40's. CAD, CABG Patient has suicidal ideation: No Patient has homicidal ideation: No - Past Medical History Cardiac Medical History: Reports: Hx Hypercholesterolemia, Hx Hypertension Pulmonary Medical History: Reports: Hx Asthma Renal/ Medical History: Reports: Hx Kidney Stones Psychiatric Medical History: Reports: Hx Anxiety Past Surgical History: Reports: Other - Vasectomy - Immunizations Hx Diphtheria, Pertussis, Tetanus Vaccination: No Review of Systems - Review of Systems Notes: REVIEW OF SYSTEMS: CONSTITUTIONAL : Denies fever. EENT: Denies eye, ear, nose or mouth or throat pain or other symptoms. CARDIOVASCULAR: See HPI. RESPIRATORY: Denies cough, chest congestion, but does feel some shortness of breath. GASTROINTESTINAL: Denies abdominal pain or nausea, vomiting, or diarrhea. GENITOURINARY: Denies difficulty or painful urinating, urinary frequency, blood in urine. MUSCULOSKELETAL: Denies back or neck pain. Denies joint pain or swelling. SKIN: Denies rash or skin lesions. NEUROLOGICAL: Denies LOC or altered mental status. Denies headache. Denies sensory loss or motor deficits. ALL OTHER SYSTEMS REVIEWED AND NEGATIVE. Physical Exam - Vital signs Vitals: Temp Pulse Resp BP Pulse Ox 98.5 F 60 20 145/75 H 97 07/30/18 11:39 07/30/18 11:39 07/30/18 11:39 07/30/18 11:39 07/30/18 11:39 Interpretation: Normal Notes: PHYSICAL EXAMINATION: GENERAL: Well-appearing, in no acute distress. Anxious. HEAD: Atraumatic, normocephalic. EYES: Pupils equal round and reactive to light, extraocular movements intact. ENT: oropharynx clear without exudates. Moist mucous membranes. NECK: Normal range of motion, supple. LUNGS: Breath sounds clear and equal bilaterally. Patient may have a very slight tenderness to press of the left mid anterior chest. HEART: Regular rate and rhythm without murmurs. ABDOMEN: Soft, nontender. No guarding or rebound. No masses. BACK: No tenderness throughout entire back. EXTREMITIES: Normal range of motion without pain. Negative Homans bilaterally. NEUROLOGICAL: Normal speech, normal gait. Normal sensory, motor, and reflex exams. Awake, alert, and oriented x3. Cranial nerves normal. PSYCH: Normal mood, normal affect. SKIN: Warm, dry, no rashes. Course - Re-evaluation Re-evalutation: 07/30/18 16:24 Patient's entire work-up including a CTA of the chest are negative. Patient has a normal EKG. Negative two troponins. I added 0.2 mg of nitro patch put on the patient. After I check back with him about a half an hour later, patient said his pain had almost completely gone away. - Vital Signs Vital signs: Temp Pulse Resp BP Pulse Ox 98.5 F 60 23 H 100/86 H 98 07/30/18 11:39 07/30/18 11:39 07/30/18 13:02 07/30/18 13:02 07/30/18 13:02 - Laboratory Result Diagrams: 07/30/18 11:52 07/30/18 11:52 Laboratory results interpreted by me: 07/30/18 07/30/18 11:52 11:52 RBC 5.87 H MCH 26.7 L RDW 17.0 H Glucose 112 H AST 16 L Creatine Kinase 37 L - Diagnostic Test Radiology reviewed: Image reviewed, Reports reviewed - CTA of the chest negative. Radiology results interpreted by me: 07/30/18 16:31 Chest x-ray is normal. - EKG Interpretation by Ca EKG shows normal: Sinus rhythm Rate: Normal Rhythm: NSR Additional EKG results interpreted by in: 07/30/18 16:31 EKG is normal without any ST elevation. Discharge - Discharge Clinical Impression: Chest pain, Left arm pain Disposition: ADMITTED OBSERVATION Admitting Provider: Patti (Hospitalist) Unit Admitted: Telemetry Referrals: TALAT BARRERA MD [Primary Care Provider] - Follow up as needed
--- NOTE | 2018-07-30 14:06 | RADIOLOGY REPORT (SQ) ---
EXAM DESCRIPTION: CTA CHEST COMPLETED DATE/TIME: 07/30/2018 1:51 pm REASON FOR STUDY: Left sided chest pain COMPARISON: Same day radiograph TECHNIQUE: CT scan of the chest performed using helical scanning technique with dynamic intravenous contrast injection. Images reviewed with lung, soft tissue and bone windows. Reconstructed coronal and sagittal MPR images reviewed. Additional 3 dimensional post-processing performed to develop Maximal Intensity Projection images (RI P). All images stored on PACS. All CT scanners at this facility use dose modulation, iterative reconstruction, and/or weight based d osing when appropriate to reduce radiation dose to as low as reasonably achievable (ALARA). [facility]: Dose Right [facility]: CareDose [facility]: Dose Right [facility]: Teradose 4D [facility]: Ambassador CONTRAST TYPE AND DOSE: contrast/concentration: Isovue 350.00 mg/ml; Total Contrast Delivered: 86.0 ml; Total Saline Delivered: 90.0 ml Contrast bolus optimized for the pulmonary arteries. Not diagnostic for the aorta. RENAL FUNCTION: None required. The patient is less than 50 years old. RADIATION DOSE: CT Rad equipment meets quality standard of care and radiation dose reduction techniq ues were employed. CTDIvol: 6.6 - 39.7 mGy. DLP: 1531 mGy-cm. . LIMITATIONS: None. FINDINGS: LUNGS AND PLEURA: No masses, infiltrates, or pneumothorax. No pleural effusions or pleura l calcifications. AORTA AND GREAT VESSELS: No aneurysm. Contrast bolus not optimized for the aorta. HEART: No pericardial effusion. Normal right to left ventricular ratio. Scattered coronary atheroscl erosis. PULMONARY ARTERIES: No emboli visualized in the main pulmonary arteries or the segmental branches. HILAR AND MEDIASTINAL STRUCTURES: No identified masses or abnormal nodes. HARDWARE: None in the chest. UPPER ABDOMEN: No significant findings. Limited exam. THYROID AND OTHER SOFT TISSUES: No masses. No adenopathy. BONES: No acute or significant finding. 3D MIPS: Confirm above findings. OTHER: No other significant finding. IMPRESSION: No evidence of pulmonary embolus or other acute intrathoracic process. COMMENT: Quality ID # [id number]: Final reports with documentation of one or more dose reduction techniques (e.g., Automated exposure control, adjustment of the mA and/or kV according to patient size, use of iterative reconstruction technique) TECHNICAL DOCUMENTATION: JOB ID: [id number]- All Rights Reserved Reading location - IP/workstation name: [email or web address]
[2018-07-30] MEDS ORDERED: ACETAMINOPHEN 325 MG TABLET ONE (14:13)
--- NOTE | 2018-07-30 14:35 | EKG REPORT ---
SEVERITY:- NORMAL ECG - SINUS RHYTHM : Confirmed by: Tim Wagner MD 30-Jul-2018 14:34:27
[2018-07-30] MEDS ORDERED: PROMETHAZINE HCL INJ 25 MG/1 ML VIAL IV PRN (17:18)
[2018-07-30] MEDS ORDERED: IPRATROPIUM/ALBUTEROL 0.5-2.5 MG/3 ML AMPUL NEB PRN (17:18)
[2018-07-30] MEDS ORDERED: ACETAMINOPHEN 325 MG TABLET PO PRN (17:18)
[2018-07-30] MEDS ORDERED: ONDANSETRON 4 MG TAB.RAPDIS PO PRN (17:18)
[2018-07-30] MEDS ORDERED: HYDRALAZINE HCL INJ/PF 20 MG/1 ML SDV IV PRN (17:24)
--- NOTE | 2018-07-30 17:47 | PDOC H&P ---
History of Present Illness Admission Date/PCP: 07/30/18 16:36 TALAT BARRERA MD History of Present Illness: WING FARAH JR is a 48 year old male past medical history of hypertension, dyslipidemia, presenting to ED complaining of left-sided chest pain is 1 day. 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 Pain is associated with tingling of left u pper extremity and left thumb, pain worse with moving upper extremity, better with rest. Patient has been voiding using his left upper extremity fearing that it may increase the pain. Complaining of being nauseous and one episode of nonbilious nonbloody vomiting yesterday. Denies any recent neck trauma, chest or upper extremity trauma, recent travel, or immobilization. 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 On December 2017 patient had similar symptoms but he said this time they are more severe. He has been seeing signal manager Dr. Hunt his [facility] to [place] last 7 years. He states initially he saw him 7 years ago for left ventricular hypertrophy. Stress test done December 2017 which was reported as negative. Has never had any left heart cath. History is positive for ARTEM on the side who had a heart attack at age 41. He denies, Chills, vomiting, diarrhea, constipation or any urinary symptoms. In ED CTA was negative for any PE or aortic aneurysm, tropes negative x2, EKG negative for any acute changes. Hospital was consulted for admission. Past Medical History Cardiac Medical History: Reports: Hyperlipidema, Hypertension Pulmonary Medical History: Reports: Asthma Denies: Tuberculosis Past Surgical History Past Surgical History: Reports: Other - Vasectomy Social History Smoking Status: Never Smoker Frequency of Alcohol Use: None Hx Recreational Drug Use: No Hx Prescription Drug Abuse: No - Advance Directive Resuscitation Status: Full Code Family History Family History: Reviewed & Not Pertinent, CAD - Father [place] at 40's. CAD, CABG Parental Family History Reviewed: Yes - CAD father Children Family History Reviewed: Yes Sibling(s) Family History Reviewed.: Yes Medication/Allergy Home Medications: Amlodipine Besylate [Norvasc 5 mg Tablet] 5 mg PO DAILY 07/30/18 Atorvastatin Calcium [Lipitor 10 mg Tablet] 10 mg PO QHS 07/30/18 Benazepril HCl [Lotensin 10 mg Tablet] 10 mg PO DAILY 07/30/18 Metoprolol Succinate [Toprol XL 100 mg Tablet] 100 mg PO DAILY 07/30/18 Telmisartan [Micardis 40 mg Tablet] 40 mg PO DAILY 07/30/18 Zolpidem Tartrate [Ambien Cr] 12.5 mg PO QHS 07/30/18 Allergies/Adverse Reactions: No Known Allergies Allergy (Verified 07/30/18 11:26) Review of Systems Review of Systems: as per hpi Physical Exam Vital Signs: Temp Pulse Resp BP Pulse Ox 98.5 F 60 21 H 100/65 94 07/30/18 11:39 07/30/18 11:39 07/30/18 16:01 07/30/18 16:00 07/30/18 16:01 Intake & Output 07/29/18 07/30/18 07/31/18 06:59 06:59 06:59 Weight 110.4 kg General appearance: PRESENT: no acute distress, obese, well-developed, well- nourished Head exam: PRESENT: atraumatic, normocephalic Eye exam: PRESENT: conjunctiva pink, EOMI, PERRLA. ABSENT: scleral icterus Ear exam: PRESENT: normal external ear exam Mouth exam: PRESENT: moist, tongue midline Neck exam: ABSENT: carotid bruit, JVD, lymphadenopathy, thyromegaly Respiratory exam: PRESENT: clear to auscultation jorge luis. ABSENT: rales, rhonchi, wheezes Cardiovascular exam: PRESENT: RRR. ABSENT: diastolic murmur, rubs, systolic murmur Pulses: PRESENT: normal dorsalis pedis pul Vascular exam: PRESENT: normal capillary refill GI/Abdominal exam: PRESENT: normal bowel sounds, soft. ABSENT: distended, guarding, mass, organolmegaly, rebound, tenderness Rectal exam: PRESENT: deferred Extremities exam: PRESENT: full ROM. ABSENT: calf tenderness, clubbing, pedal edema Neurological exam: PRESENT: alert, awake, oriented to person, oriented to place, oriented to time, oriented to situation, CN II-XII grossly intact. ABSENT: motor sensory deficit Psychiatric exam: PRESENT: appropriate affect, normal mood. ABSENT: homicidal ideation, suicidal ideation Skin exam: PRESENT: dry, intact, warm. ABSENT: cyanosis, rash Results Laboratory Results: 07/30/18 11:52 07/30/18 11:52 07/30/18 07/30/18 11:52 11:52 WBC 9.5 RBC 5.87 H Hgb 15.7 Hct 46.9 MCV 80 MCH 26.7 L MCHC 33.4 RDW 17.0 H Plt Count 221 Seg Neutrophils % 72.1 Lymphocytes % 19.4 Monocytes % 6.6 Eosinophils % 1.1 Basophils % 0.8 Absolute Neutrophils 6.8 Absolute Lymphocytes 1.8 Absolute Monocytes 0.6 Absolute Eosinophils 0.1 Absolute Basophils 0.1 Sodium 143.4 Potassium 3.7 Chloride 107 Carbon Dioxide 26 Anion Gap 10 BUN 7 Creatinine 0.56 Est GFR ( Amer) > 60 Est GFR (Non-Af Amer) > 60 Glucose 112 H Calcium 9.6 Total Bilirubin 0.5 AST 16 L ALT 36 Alkaline Phosphatase 82 Total Protein 7.1 Albumin 4.2 Lipase 206.8 07/30/18 07/30/18 07/30/18 11:52 11:52 15:03 Creatine Kinase 37 L Troponin I < 0.012 < 0.012 Impressions: Chest X-Ray 07/30/18 11:48 IMPRESSION: NO ACUTE RADIOGRAPHIC FINDING IN THE CHEST. Chest/Abdomen CTA 07/30/18 13:20 IMPRESSION: No evidence of pulmonary embolus or other acute intrathoracic process. Assessment and Plan - Diagnosis (1) Chest pain Qualifiers: Chest pain type: other chest pain Qualified Code(s): R07.89 - Other chest pain; R07.8 - Other chest pain Is this a current diagnosis for this admission?: Yes Plan: HEART Score 4. Admit to telemetry, start on aspirin, statins, JESSENIA, beta blockers, sublingual nitrate, morphine, supplemental oxygen. We will order a stress test for risk stratification. (2) Hyperlipidemia Is this a current diagnosis for this admission?: No Plan: Diet and lifestyle modification. Restart his statins. (3) Hypertension Is this a current diagnosis for this admission?: No Plan: Restart home meds. Adjust meds as needed. (4) Insomnia Is this a current diagnosis for this admission?: No Plan: Restart Ambien. (5) Obesity (BMI 30-39.9) Is this a current diagnosis for this admission?: No Plan: Diet and lifestyle modification. We will get A1c.
[2018-07-30] MEDS ORDERED: MORPHINE SULFATE 10 MG/ML INJ IV PRN (19:01)
[2018-07-30] MEDS: OXYCODONE-ACETAMINOPHEN 5-325 MG TABLET PO PRN (19:40)
[2018-07-30] MEDS: ENOXAPARIN SODIUM INJ 40 MG/0.4 ML DISP.SYRIN SUBCUT SCH (20:50)
[2018-07-30] MEDS: ATORVASTATIN CALCIUM 40 MG TABLET PO SCH (21:17)
[2018-07-30] MEDS: FAMOTIDINE 20 MG TABLET PO SCH (21:17)
[2018-07-30] MEDS ORDERED: ZOLPIDEM TARTRATE 5 MG TABLET PO SCH (22:00)
[2018-07-31] MEDS: OXYCODONE-ACETAMINOPHEN 5-325 MG TABLET PO PRN ×3 (03:44→17:54)
[2018-07-31 05:34] LABS: ABSOLUTE BASOPHILS # (AUTO) 0.1 10^3/uL (0.0-0.2); ABSOLUTE EOSINOPHILS # (AUTO) 0.2 10^3/uL (0.0-0.6); ABSOLUTE LYMPHOCYTES (AUTO) 1.8 10^3/uL (0.5-4.7); ABSOLUTE MONOCYTES (AUTO) 0.9 10^3/uL (0.1-1.4); ABSOLUTE NEUT (AUTO) 7.5 10^3/uL (1.7-8.2); BASOPHILS % (AUTO) 0.8 % (0-2); EOSINOPHILS % (AUTO) 1.5 % (0-6); HEMATOCRIT 41.9 % (37.9-51.0); HEMOGLOBIN 14.2 g/dL (13.5-17.0); LYMPHOCYTES % (AUTO) 17.5 % (13-45); MEAN CORPUSCULAR HGB CONC 33.8 g/dL (32.0-36.0); MEAN CORPUSCULAR VOLUME 80 fl (80-97); MONOCYTES % (AUTO) 8.5 % (3-13); PLATELET COUNT 152 10^3/uL (150-450); RED BLOOD COUNT 5.26 10^6/uL (4.35-5.55); RED CELL DISTRIBUTION WIDTH 16.8 % (11.5-14.0); SEGMENTED NEUTROPHILS % (AUTO) 71.7 % (42-78); TOTAL CELLS COUNTED % (AUTO) 100 %; WHITE BLOOD COUNT 10.5 10^3/uL (4.0-10.5)
[2018-07-31 05:47] LABS: ANION GAP 13 (5-19); BLOOD UREA NITROGEN 9 mg/dL (7-20); CALCIUM 9.1 mg/dL (8.4-10.2); CARBON DIOXIDE 21 mmol/L (22-30); CHLORIDE 106 mmol/L (98-107); GLUCOSE 85 mg/dL (75-110); POTASSIUM 3.8 mmol/L (3.6-5.0)
[2018-07-31] MEDS ORDERED: MAG HYDROX/AL HYDROX/SIMETH SUSP 30 ML UDCUP PO PRN (08:42)
[2018-07-31] MEDS ORDERED: METOPROLOL SUCCINATE 50 MG TAB.SR.24H PO SCH (10:00)
[2018-07-31] MEDS: ENOXAPARIN SODIUM INJ 40 MG/0.4 ML DISP.SYRIN SUBCUT SCH (11:25)
[2018-07-31] MEDS: METOPROLOL SUCCINATE 50 MG TAB.SR.24H PO SCH (11:26)
[2018-07-31] MEDS: FAMOTIDINE 20 MG TABLET PO SCH ×2 (11:34→21:27)
[2018-07-31] MEDS: BENAZEPRIL HCL 20 MG TABLET PO SCH (11:34)
[2018-07-31] MEDS: AMLODIPINE BESYLATE 5 MG TABLET PO SCH (11:34)
[2018-07-31] MEDS: ASPIRIN 81 MG TABLET, CHEWABLE PO SCH (11:35)
[2018-07-31] MEDS ORDERED: PROMETHAZINE HCL INJ 25 MG/1 ML VIAL IV PRN (14:00)
[2018-07-31] MEDS ORDERED: ONDANSETRON 4 MG TAB.RAPDIS PO PRN (14:00)
--- NOTE | 2018-07-31 14:49 | PDOC PROGRESS REPORT ---
Subjective Progress Note for:: 07/31/18 Subjective:: No adverse events overnight. Is laying in bed with a heart rate around 60 and looks very comfortable but said he still having some chest discomfort that goes from his clavicle down to his lower rib cage. It is not exacerbated by movement. Does not really get worse with activity. He says it sort of comes and goes. He had a similar presentation in last December and went to see [employer] core feeder here in [facility], Dr. Demetrius Hunt. At that time Dr. Hunt noted that the patient had had a negative stress test about a year prior, and did not recommend any further investigation at that time. He was supposed to have a repeat follow-up visit back in April, but the patient did not keep that appointment. Reason For Visit: CHEST PAIN Physical Exam Vital Signs: Temp Pulse Resp BP Pulse Ox 98.4 F 56 L 16 151/82 H 95 07/31/18 11:49 07/31/18 11:49 07/31/18 11:49 07/31/18 11:49 07/31/18 11:49 Intake & Output 07/30/18 07/31/18 08/01/18 06:59 06:59 06:59 Intake Total 600 Balance 600 Weight 108.7 kg General appearance: PRESENT: no acute distress, cooperative, disheveled, morbidly obese Respiratory exam: PRESENT: clear to auscultation jorge luis, symmetrical, unlabored. ABSENT: accessory muscle use, chest wall tenderness, crackles, prolonged expiratory phas, rhonchi, stridor, tachypnea, wheezes Cardiovascular exam: PRESENT: RRR, +S1, +S2. ABSENT: diastolic murmur, systolic murmur Pulses: PRESENT: normal carotid pulses Vascular exam: PRESENT: normal capillary refill GI/Abdominal exam: PRESENT: normal bowel sounds, soft. ABSENT: distended, guarding, rebound, tenderness Extremities exam: ABSENT: clubbing, pedal edema Musculoskeletal exam: PRESENT: normal inspection. ABSENT: deformity Neurological exam: PRESENT: alert, awake, oriented to person, oriented to place, oriented to time, oriented to situation Psychiatric exam: PRESENT: anxious Skin exam: PRESENT: dry, warm Results Laboratory Results: 07/31/18 04:20 07/31/18 04:20 07/30/18 07/31/18 07/31/18 11:52 04:20 04:20 WBC 10.5 RBC 5.26 Hgb 14.2 Hct 41.9 MCV 80 MCH 27.0 MCHC 33.8 RDW 16.8 H Plt Count 152 Seg Neutrophils % 71.7 Lymphocytes % 17.5 Monocytes % 8.5 Eosinophils % 1.5 Basophils % 0.8 Absolute Neutrophils 7.5 Absolute Lymphocytes 1.8 Absolute Monocytes 0.9 Absolute Eosinophils 0.2 Absolute Basophils 0.1 Sodium 140.0 Potassium 3.8 Chloride 106 Carbon Dioxide 21 L Anion Gap 13 BUN 9 Creatinine 0.57 Est GFR ( Amer) > 60 Est GFR (Non-Af Amer) > 60 Glucose 85 Calcium 9.1 TSH 1.57 07/30/18 07/30/18 07/30/18 11:52 11:52 15:03 Creatine Kinase 37 L Troponin I < 0.012 < 0.012 07/30/18 21:00 Creatine Kinase Troponin I < 0.012 Impressions: Chest X-Ray 07/30/18 11:48 IMPRESSION: NO ACUTE RADIOGRAPHIC FINDING IN THE CHEST. Chest/Abdomen CTA 07/30/18 13:20 IMPRESSION: No evidence of pulmonary embolus or other acute intrathoracic process. Assessment and Plan - Diagnosis (1) Chest pain Qualifiers: Chest pain type: other chest pain Qualified Code(s): R07.89 - Other chest pain; R07.8 - Other chest pain Is this a current diagnosis for this admission?: Yes Plan: Troponins have been negative x3. He was supposed to get a stress test this morning but he told the tech that he was still having pain so he decided not to do it. I do not think this patient's chest pain is cardiac. In addition to the negative troponins, he has had no evidence of ischemia on EKG or telemetry, and the CT scan of his chest was negative. His heart rate has been running a little bit lower than he typically runs according to him. I am going to encourage him to go through with the stress test tomorrow if he has had no clinical change in his condition. (2) Obesity (BMI 30-39.9) Is this a current diagnosis for this admission?: No Plan: Strongly encouraged lifestyle modification. - Time Time Spent with patient: 15-24 minutes
[2018-07-31] MEDS: ATORVASTATIN CALCIUM 40 MG TABLET PO SCH (21:27)
[2018-07-31] MEDS ORDERED: ZOLPIDEM TARTRATE 5 MG TABLET PO SCH (22:00)
[2018-08-01 05:24] LABS: ABSOLUTE BASOPHILS # (AUTO) 0.1 10^3/uL (0.0-0.2); ABSOLUTE EOSINOPHILS # (AUTO) 0.1 10^3/uL (0.0-0.6); ABSOLUTE LYMPHOCYTES (AUTO) 1.6 10^3/uL (0.5-4.7); ABSOLUTE MONOCYTES (AUTO) 0.7 10^3/uL (0.1-1.4); ABSOLUTE NEUT (AUTO) 4.7 10^3/uL (1.7-8.2); BASOPHILS % (AUTO) 0.7 % (0-2); HEMATOCRIT 44.9 % (37.9-51.0); HEMOGLOBIN 15.1 g/dL (13.5-17.0); LYMPHOCYTES % (AUTO) 22.6 % (13-45); MEAN CORPUSCULAR HEMOGLOBIN 27.1 pg (27.0-33.4); MEAN CORPUSCULAR HGB CONC 33.6 g/dL (32.0-36.0); MEAN CORPUSCULAR VOLUME 80 fl (80-97); MONOCYTES % (AUTO) 10.2 % (3-13); PLATELET COUNT 184 10^3/uL (150-450); RED BLOOD COUNT 5.59 10^6/uL (4.35-5.55); RED CELL DISTRIBUTION WIDTH 16.8 % (11.5-14.0); SEGMENTED NEUTROPHILS % (AUTO) 64.5 % (42-78); TOTAL CELLS COUNTED % (AUTO) 100 %; WHITE BLOOD COUNT 7.3 10^3/uL (4.0-10.5)
[2018-08-01 05:46] LABS: ANION GAP 10 (5-19); BLOOD UREA NITROGEN 9 mg/dL (7-20); CALCIUM 9.4 mg/dL (8.4-10.2); CARBON DIOXIDE 27 mmol/L (22-30); CHLORIDE 104 mmol/L (98-107); GLUCOSE 88 mg/dL (75-110); POTASSIUM 4.2 mmol/L (3.6-5.0); SODIUM 140.9 mmol/L (137-145)
[2018-08-01] MEDS: ENOXAPARIN SODIUM INJ 40 MG/0.4 ML DISP.SYRIN SUBCUT SCH (10:41)
[2018-08-01] MEDS ORDERED: REGADENOSON INJ 0.4 MG/5 ML DISP.SYRIN IV ONE (10:46)
[2018-08-01] MEDS: ASPIRIN 81 MG TABLET, CHEWABLE PO SCH (12:08)
[2018-08-01] MEDS: METOPROLOL SUCCINATE 50 MG TAB.SR.24H PO SCH (12:08)
[2018-08-01] MEDS: AMLODIPINE BESYLATE 5 MG TABLET PO SCH (12:08)
[2018-08-01] MEDS: FAMOTIDINE 20 MG TABLET PO SCH (12:08)
[2018-08-01] MEDS: BENAZEPRIL HCL 20 MG TABLET PO SCH (12:08)
[2018-08-01] MEDS: OXYCODONE-ACETAMINOPHEN 5-325 MG TABLET PO PRN (16:27)
--- NOTE | 2018-08-01 18:07 | PDOC PROGRESS REPORT ---
Subjective Progress Note for:: 08/01/18 Subjective:: No adverse events overnight. No new complaints. No chest pain or shortness of breath. He had a stress test this morning the results are pending. Reason For Visit: CHEST PAIN Physical Exam Vital Signs: Temp Pulse Resp BP Pulse Ox 98.2 F 63 18 138/79 H 99 08/01/18 16:51 08/01/18 16:51 08/01/18 16:51 08/01/18 16:51 08/01/18 16:51 Intake & Output 07/31/18 08/01/18 08/02/18 06:59 06:59 06:59 Intake Total 600 1041 592 Balance 600 1041 592 Weight 108.7 kg 107.9 kg General appearance: PRESENT: no acute distress, cooperative, disheveled, morbidly obese Respiratory exam: PRESENT: clear to auscultation jorge luis, symmetrical, unlabored. ABSENT: accessory muscle use, chest wall tenderness, crackles, prolonged expiratory phas, rhonchi, stridor, tachypnea, wheezes Cardiovascular exam: PRESENT: RRR, +S1, +S2. ABSENT: diastolic murmur, systolic murmur Pulses: PRESENT: normal carotid pulses Vascular exam: PRESENT: normal capillary refill GI/Abdominal exam: PRESENT: normal bowel sounds, soft. ABSENT: distended, guarding, rebound, tenderness Extremities exam: ABSENT: clubbing, pedal edema Musculoskeletal exam: PRESENT: normal inspection. ABSENT: deformity Neurological exam: PRESENT: alert, awake, oriented to person, oriented to place, oriented to time, oriented to situation Psychiatric exam: PRESENT: anxious Skin exam: PRESENT: dry, warm Results Laboratory Results: 08/01/18 04:45 08/01/18 04:45 08/01/18 08/01/18 04:45 04:45 WBC 7.3 RBC 5.59 H Hgb 15.1 Hct 44.9 MCV 80 MCH 27.1 MCHC 33.6 RDW 16.8 H Plt Count 184 Seg Neutrophils % 64.5 Lymphocytes % 22.6 Monocytes % 10.2 Eosinophils % 2.0 Basophils % 0.7 Absolute Neutrophils 4.7 Absolute Lymphocytes 1.6 Absolute Monocytes 0.7 Absolute Eosinophils 0.1 Absolute Basophils 0.1 Sodium 140.9 Potassium 4.2 Chloride 104 Carbon Dioxide 27 Anion Gap 10 BUN 9 Creatinine 0.70 Est GFR ( Amer) > 60 Est GFR (Non-Af Amer) > 60 Glucose 88 Calcium 9.4 07/30/18 07/30/18 07/30/18 11:52 11:52 15:03 Creatine Kinase 37 L Troponin I < 0.012 < 0.012 07/30/18 21:00 Creatine Kinase Troponin I < 0.012 Impressions: Chest X-Ray 07/30/18 11:48 IMPRESSION: NO ACUTE RADIOGRAPHIC FINDING IN THE CHEST. Chest/Abdomen CTA 07/30/18 13:20 IMPRESSION: No evidence of pulmonary embolus or other acute intrathoracic process. Assessment and Plan - Diagnosis (1) Chest pain Qualifiers: Chest pain type: other chest pain Qualified Code(s): R07.89 - Other chest pain; R07.8 - Other chest pain Is this a current diagnosis for this admission?: Yes Plan: Troponins have been negative. Stress test results are pending. If it is negative I will send him home. (2) Obesity (BMI 30-39.9) Is this a current diagnosis for this admission?: No Plan: Strongly encouraged lifestyle modification. - Time Time Spent with patient: 15-24 minutes
--- NOTE | 2018-08-01 19:54 | DRAGON STRESS TEST REPORT ---
Intravenous Lexiscan Cardiolite stress test using single photon emmision computerized tomography. Date of procedure: 08/01/2018. Ordering Provider: Dr. KING. Patient's status: Indication: Chest pain. Coronary risk factors: Age, hypertension, and dyslipidemia. Resting EKG: Sinus Rhythm. Within Normal Limits. Stress EKG: No changes of ischemia. The patient had no chest pain or discomfort, and there were no arrhythmias seen. Reason for termination: Protocol. Conclusions: Normal EKG and hemodynamic response to IV Lexiscan. Nuclear data: At rest the patient was given 14.84 millicuries of technetium 99m sestamibi injected intravenously. As per protocol rest non gated SPECT images were obtained. Subsequently the patient was given intravenous Lexiscan at a dose of 0.4 mg in 5 mL intravenously, followed by flush with normal saline. Subsequently the stress dose of 43.8 millicuries of technetium 99m sestamibi was injected intravenously. As per protocol stress gated images were obtained. Nuclear interpretation: Review of images showed that all segments of the myocardium had normal perfusion at rest, and normal perfusion post stress with IV Lexiscan. All segments of the myocardium had normal motion, contraction, and thickening by gated study. T. I D. ratio was normal a 1.16. There is no transient ischemic dilatation of the left ventricle. Computer read rest, and stress left ventricular ejection fraction were 58 %, and 61 %, respectively. Conclusion: 1. There is no scintigraphic evidence of Lexiscan induced myocardial ischemia. 2. There is no scintigraphic evidence of myocardial infarction/scar. Recommendations: Aggressive risk factor modification, and treating the underlying co- morbidities. MTDD
[2018-08-01 20:18] VITALS: BP 131/78
--- NOTE | 2018-08-01 22:09 | PDOC DISCHARGE SUMMARY ---
General - Admit/Disc Date/PCP Admission Date/Primary Care Provider: 07/30/18 16:36 TALAT BARRERA MD Discharge Date: 08/01/18 - Discharge Diagnosis (1) Chest pain Is this a current diagnosis for this admission?: Yes Summary: Patient was admitted for acute chest pain which resolved during his hospital course. He was subsequently ruled out for myocardial infarction or injury with serial EKGs and serial cardiac enzymes. A Cardiolite cardiac stress test was performed and revealed no evidence of ischemic disease or obvious coronary artery disease. Ejection fraction was 58%. (2) Hyperlipidemia Is this a current diagnosis for this admission?: Yes Summary: Patient's Lipitor was increased to 40 mg/day based on his lipid profile. (3) Hypertension Is this a current diagnosis for this admission?: Yes Summary: Patient's blood pressure medications were changed decreasing his metoprolol to 50 mg/day and increasing his benazepril to 40 mg/day. His ARB was discontinued. (4) Obesity (BMI 30-39.9) Is this a current diagnosis for this admission?: Yes Summary: Weight loss was recommended. - Additional Information Resuscitation Status: Full Code Discharge Diet: Cardiac Discharge Activity: Activity As Tolerated Prescriptions: Aspirin [Aspirin 81 mg Chewable Tablet] 81 mg PO DAILY 30 Days #30 tab.chew Atorvastatin Calcium [Lipitor 40 mg Tablet] 40 mg PO QHS 30 Days #30 tablet Benazepril HCl [Lotensin 20 mg Tablet] 40 mg PO DAILY 30 Days #60 tablet Metoprolol Succinate [Toprol Xl 50 mg Tab.sr] 50 mg PO DAILY 30 Days #30 tab.sr.24h Home Medications: Amlodipine Besylate [Norvasc 5 mg Tablet] 5 mg PO DAILY 07/30/18 Zolpidem Tartrate [Ambien Cr] 12.5 mg PO QHS 07/30/18 Aspirin [Aspirin 81 mg Chewable Tablet] 81 mg PO DAILY 30 Days #30 tab.chew 08/01/18 Atorvastatin Calcium [Lipitor 40 mg Tablet] 40 mg PO QHS 30 Days #30 tablet 08/01/18 Benazepril HCl [Lotensin 20 mg Tablet] 40 mg PO DAILY 30 Days #60 tablet Metoprolol Succinate [Toprol Xl 50 mg Tab.sr] 50 mg PO DAILY 30 Days #30 tab.sr.24h 08/01/18 History of Present Illness Patient complains of: Cheat Pain History of Present Illness: WING FARAH JR is a 48 year old male past medical history of hypertension, dyslipidemia, presenting to ED complaining of left-sided chest pain is 1 day. 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 Pain is associated with tingling of left upper extremity and left thumb, pain worse with moving upper extremity, better with rest. Patient has been voiding using his left upper extremity fearing that it may increase the pain. Complaining of being nauseous and one episode of nonbilious nonbloody vomiting yesterday. Denies any recent neck trauma, chest or upper extremity trauma, recent travel, or immobilization. 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 On December 2017 patient had similar symptoms but he said this time they are more severe. He has been seeing investment manager Dr. Hunt his [facility] to [place] last 7 years. He states initially he saw him 7 years ago for left ventricular hypertrophy. Stress test done December 2017 which was reported as negative. Has never had any left heart cath. History is positive for ARTEM on the side who had a heart attack at age 41. He denies, Chills, vomiting, diarrhea, constipation or any urinary symptoms. In ED CTA was negative for any PE or aortic aneurysm, tropes negative x2, EKG negative for any acute changes. Hospital was consulted for admission. Hospital Course Hospital Course: 07/31/2018 No adverse events overnight. Is laying in bed with a heart rate around 60 and looks very comfortable but said he still having some chest discomfort that goes from his clavicle down to his lower rib cage. It is not exacerbated by movement. Does not really get worse with activity. He says it sort of comes and goes. He had a similar presentation in last December and went to see investment manager here in [facility], Dr. Demetrius Hunt. At that time Dr. Hunt noted that the patient had had a negative stress test about a year prior, and did not recommend any further investigation at that time. He was supposed to have a repeat follow-up visit back in April, but the patient did not keep that appointment. 08/01/2018 No adverse events overnight. No new complaints. No chest pain or shortness of breath. He had a stress test this morning: results are negative for acute ischemia or evidence of coronary artery disease. Patient will be discharged this evening. Physical Exam Vital Signs: Temp Pulse Resp BP Pulse Ox 98.3 F 57 L 20 131/78 H 97 08/01/18 19:18 08/01/18 19:18 08/01/18 19:18 08/01/18 19:18 08/01/18 19:18 Intake & Output 07/30/18 07/31/18 08/01/18 23:59 23:59 23:59 Intake Total 120 1046 1067 Balance 120 1046 1067 Weight 108.7 kg 108.7 kg 107.9 kg General appearance: PRESENT: no acute distress, cooperative, obese Neurological exam: PRESENT: alert, oriented to person, oriented to place, oriented to time, oriented to situation Psychiatric exam: PRESENT: appropriate affect, normal mood Results Laboratory Results: 08/01/18 04:45 08/01/18 04:45 08/01/18 08/01/18 04:45 04:45 WBC 7.3 RBC 5.59 H Hgb 15.1 Hct 44.9 MCV 80 MCH 27.1 MCHC 33.6 RDW 16.8 H Plt Count 184 Seg Neutrophils % 64.5 Lymphocytes % 22.6 Monocytes % 10.2 Eosinophils % 2.0 Basophils % 0.7 Absolute Neutrophils 4.7 Absolute Lymphocytes 1.6 Absolute Monocytes 0.7 Absolute Eosinophils 0.1 Absolute Basophils 0.1 Sodium 140.9 Potassium 4.2 Chloride 104 Carbon Dioxide 27 Anion Gap 10 BUN 9 Creatinine 0.70 Est GFR ( Amer) > 60 Est GFR (Non-Af Amer) > 60 Glucose 88 Calcium 9.4 07/30/18 07/30/18 07/30/18 11:52 11:52 15:03 Creatine Kinase 37 L Troponin I < 0.012 < 0.012 07/30/18 21:00 Creatine Kinase Troponin I < 0.012 Impressions: Chest X-Ray 07/30/18 11:48 IMPRESSION: NO ACUTE RADIOGRAPHIC FINDING IN THE CHEST. Chest/Abdomen CTA 07/30/18 13:20 IMPRESSION: No evidence of pulmonary embolus or other acute intrathoracic process. Qualifiers - * PATIENT BEING DISCHARGED WITH ANY OF THE FOLLOWING DIAGNOSIS: No Acute Heart Failure Is this a Heart Failure Patient?: No Plan Discharge Plan: Discharged home in improved and stable condition. Time Spent: Less than 30 Minutes
== END 2018-08-01 22:20 | disposition home or self-care (01) ==
LOC: ER 11:25 → EH 16:36 → 4N 17:41
PROVIDERS: ADMIT Internal Medicine; ATTEND Internal Medicine
DX: R07.89 Other chest pain (principal); E78.5 Hyperlipidemia, unspecified; E66.9 Obesity, unspecified; I10 Essential (primary) hypertension; R11.2 Nausea with vomiting, unspecified; R20.2 Paresthesia of skin; G47.00 Insomnia, unspecified; M79.602 Pain in left arm; Z68.39 Body mass index [BMI] 39.0-39.9, adult; Z79.82 Long term (current) use of aspirin; Z79.899 Other long term (current) drug therapy; Z82.49 Family history of ischemic heart disease and other diseases of the circulatory system; Z87.442 Personal history of urinary calculi
CPT/HCPCS: 93005; 99285; 36415 ×3; 82550; 83690; 84443; 85025 ×3; 80048 ×2; 80053; 84484; 83036; 93017; 71046; 78452; 71275; 93010; G0378 ×3; A9500; J2785; S0119; J1650; J3490; Q9969

== ENCOUNTER 2019-01-25 17:46 | Emergency (ER) | payer BC ==
[2019-01-25] MEDS ORDERED: ASPIRIN 81 MG TABLET, CHEWABLE PO ONE (18:30)
[2019-01-25] MEDS ORDERED: NORMAL SALINE 1000 ML 1,000 ML IV ONE ×2 (18:31→22:20)
--- NOTE | 2019-01-25 18:31 | ER Document Report ---
ED Medical Screen (RME) - General Chief Complaint: Breathing Difficulty Stated Complaint: BREATHING PROBLEMS Time Seen by Provider: 01/25/19 18:27 Primary Care Provider: TALAT BARRERA MD [Primary Care Provider] - Follow up as needed Information source: Patient Notes: Patient presents complaining of chest pain shortness of breath that started around 1 PM today. Patient denies any cough or cold symptoms. Patient does report nausea. Patient did vomit yesterday although none today. Patient reports a history of LVH and hypertension. I have greeted and performed a rapid initial assessment of this patient. A comprehensive ED assessment and evaluation of the patient, analysis of test results and completion of the medical decision making process will be conducted by additional ED providers. TRAVEL OUTSIDE OF THE [place] IN LAST 30 DAYS: No - Related Data Allergies/Adverse Reactions: No Known Allergies Allergy (Verified 07/30/18 11:26) Past Medical History - Past Medical History Cardiac Medical History: Reports: Hx Hypercholesterolemia, Hx Hypertension Pulmonary Medical History: Reports: Hx Asthma Denies: Hx Tuberculosis Renal/ Medical History: Reports: Hx Kidney Stones. Denies: Hx Peritoneal Dialysis Psychiatric Medical History: Reports: Hx Anxiety Past Surgical History: Reports: Other - Vasectomy - Immunizations Hx Diphtheria, Pertussis, Tetanus Vaccination: No Physical Exam - Vital signs Vitals: Temp Pulse Resp BP Pulse Ox 99.2 F 118 H 18 178/102 H 95 01/25/19 18:12 01/25/19 18:12 01/25/19 18:12 01/25/19 18:12 01/25/19 18:12 - Cardiovascular Rhythm: Tachycardia Heart sounds: S1 appreciated, S2 appreciated Course - Vital Signs Vital signs: Temp Pulse Resp BP Pulse Ox 99.2 F 118 H 18 178/102 H 95 01/25/19 18:12 01/25/19 18:12 01/25/19 18:12 01/25/19 18:12 01/25/19 18:12 Doctor's Discharge - Discharge Referrals: TALAT BARRERA MD [Primary Care Provider] - Follow up as needed
[2019-01-25 19:30] LABS: ABSOLUTE BASOPHILS # (AUTO) 0.1 10^3/uL (0.0-0.2); ABSOLUTE EOSINOPHILS # (AUTO) 0.2 10^3/uL (0.0-0.6); ABSOLUTE LYMPHOCYTES (AUTO) 2.1 10^3/uL (0.5-4.7); ABSOLUTE MONOCYTES (AUTO) 1.2 10^3/uL (0.1-1.4); ABSOLUTE NEUT (AUTO) 9.3 10^3/uL (1.7-8.2); BASOPHILS % (AUTO) 0.9 % (0-2); EOSINOPHILS % (AUTO) 1.6 % (0-6); HEMOGLOBIN 17.6 g/dL (13.5-17.0); MEAN CORPUSCULAR HEMOGLOBIN 27.9 pg (27.0-33.4); MEAN CORPUSCULAR HGB CONC 33.8 g/dL (32.0-36.0); MEAN CORPUSCULAR VOLUME 83 fl (80-97); MONOCYTES % (AUTO) 9.5 % (3-13); PLATELET COUNT 215 10^3/uL (150-450); RED CELL DISTRIBUTION WIDTH 15.9 % (11.5-14.0); TOTAL CELLS COUNTED % (AUTO) 100 %; WHITE BLOOD COUNT 12.9 10^3/uL (4.0-10.5)
[2019-01-25 19:46] LABS: ALBUMIN 4.5 g/dL (3.5-5.0); ALKALINE PHOSPHATASE 78 U/L (38-126); ANION GAP 13 (5-19); ASPARTATE AMINO TRANSFERASE 20 U/L (17-59); BILIRUBIN,DIRECT 0.1 mg/dL (0.0-0.4); BILIRUBIN,TOTAL 0.4 mg/dL (0.2-1.3); BLOOD UREA NITROGEN 5 mg/dL (7-20); CALCIUM 9.5 mg/dL (8.4-10.2); CARBON DIOXIDE 23 mmol/L (22-30); CHLORIDE 107 mmol/L (98-107); GLUCOSE 178 mg/dL (75-110); POTASSIUM 3.4 mmol/L (3.6-5.0); TOTAL PROTEIN 7.6 g/dL (6.3-8.2)
--- NOTE | 2019-01-25 19:46 | RADIOLOGY REPORT (SQ) ---
EXAM DESCRIPTION: CHEST 2 VIEWS COMPLETED DATE/TIME: 01/25/2019 7:07 pm REASON FOR STUDY: cp COMPARISON: 07/30/2018. EXAM PARAMETERS: NUMBER OF VIEWS: two views TECHNIQUE: Digital Frontal and Lateral radiographic views of the chest acquired. RADIATION DOSE: NA LIMITATIONS: none FINDINGS: LUNGS AND PLEURA: No opacities, masses or pneumothorax. No pleural effusion. MEDIASTINUM AND HILAR STRUCTURES: No masses or contour abnormalities. HEART AND VASCULAR STRUCTURES: Normal heart and pulmonary vasculature. . BONES: No acute findings. HARDWARE: None in the chest. OTHER: No other significant finding. IMPRESSION: NO ACUTE RADIOGRAPHIC FINDING IN THE CHEST. TECHNICAL DOCUMENTATION: JOB ID: [id number] [employer]- All Rights Reserved Reading location - IP/workstation name: [email or web address]
[2019-01-25 19:58] LABS: NT PRO BNP 29 pg/mL (<125); TROPONIN I < 0.012 ng/mL
[2019-01-25] MEDS ORDERED: MECLIZINE HCL 25 MG TABLET PO ONE (22:20)
[2019-01-25] MEDS ORDERED: ONDANSETRON HCL INJ/PF 4 MG/2 ML SDV IV ONE (22:20)
--- NOTE | 2019-01-25 22:21 | ER Document Report ---
ED General - General Chief Complaint: Chest Pain Stated Complaint: BREATHING PROBLEMS Time Seen by Provider: 01/25/19 18:27 Primary Care Provider: TALAT BARRERA MD [Primary Care Provider] - Follow up as needed Notes: Patient is a 48-year-old male that comes emergency department for chief complaint of an episode that started at about 1 PM where he felt lightheaded, dizzy with spinning sensation, he started feeling tightness in his chest which made it feel like it was hard to breathe. He states because of this he came in for evaluation. Patient was given initial IV fluids and he fell asleep, I woke him, he states now he just feels dizzy and like he is spinning around. He denies current shortness of breath or chest pain. He states last night he randomly vomited as well. He denies fever/chills, head injury, nausea/vomiting, focal numbness or weakness, visual changes. He denies headache. He states that he works outside and when he gets home he typically drinks walter sumna or sweet tea, he states he thinks he is dehydrated. Past medical history includes hypertension, hyperlipidemia, asthma, anxiety. He denies smoking, reports rare alcohol, denies recreational drug abuse. He states his father had bypass surgery, denies cardiac history otherwise. He had a negative stress test on 08/01/2018. TRAVEL OUTSIDE OF THE [place] IN LAST 30 DAYS: No - Related Data Allergies/Adverse Reactions: No Known Allergies Allergy (Verified 07/30/18 11:26) Home Medications: gabapentin. celexa. ambien. telmisartan. metoprolol. amlodipine. prednisone. omeprazol. benazapril Past Medical History - General Information source: Patient - Social History Smoking Status: Never Smoker Chew tobacco use (# tins/day): No Frequency of alcohol use: Social Drug Abuse: None Lives with: Family Family History: Reviewed & Not Pertinent, CAD - Father [place] at 40's. CAD, CABG Patient has suicidal ideation: No Patient has homicidal ideation: No - Past Medical History Cardiac Medical History: Reports: Hx Hypercholesterolemia, Hx Hypertension Pulmonary Medical History: Reports: Hx Asthma Denies: Hx Tuberculosis Renal/ Medical History: Reports: Hx Kidney Stones. Denies: Hx Peritoneal Dialysis Psychiatric Medical History: Reports: Hx Anxiety Past Surgical History: Reports: Other - Vasectomy - Immunizations Hx Diphtheria, Pertussis, Tetanus Vaccination: No Review of Systems - Review of Systems Constitutional: No symptoms reported EENT: No symptoms reported Cardiovascular: See HPI Respiratory: See HPI Gastrointestinal: No symptoms reported Genitourinary: No symptoms reported Male Genitourinary: No symptoms reported Musculoskeletal: No symptoms reported Skin: No symptoms reported Hematologic/Lymphatic: No symptoms reported Neurological/Psychological: See HPI Physical Exam - Vital signs Vitals: Temp Pulse Resp BP Pulse Ox 99.2 F 118 H 18 178/102 H 95 01/25/19 18:12 01/25/19 18:12 01/25/19 18:12 01/25/19 18:12 01/25/19 18:12 - Notes Notes: GENERAL: Alert, interacts well. No acute distress. HEAD: Normocephalic, atraumatic. EYES: Pupils equal, round, and reactive to light. Extraocular movements intact. No obvious nystagmus. ENT: Oral mucosa moist, tongue midline. Oropharynx unremarkable. Airway patent. Nares patent, no nasal septal hematoma. Left TM with decreased light reflex and serous effusion but no erythema or purulent component noted. No tenderness noted. NECK: Full range of motion. Supple. Trachea midline. LUNGS: Clear to auscultation bilaterally, no wheezes, rales, or rhonchi. No re spiratory distress. HEART: Regular rate and rhythm. No murmur ABDOMEN: Soft, non-tender. Non-distended. Bowel sounds present in all 4 quadrants. GENITOURINARY: Deferred EXTREMITIES: Moves all 4 extremities spontaneously. No edema, normal radial and dorsalis pedis pulses bilaterally. No cyanosis. BACK: no cervical, thoracic, lumbar midline tenderness. No saddle anesthesia, normal distal neurovascular exam. Moves all extremities in full range of motion. NEUROLOGICAL: Alert and oriented x3. Normal speech. Cranial nerves II through XII grossly intact. PSYCH: Normal affect, normal mood. SKIN: Warm, dry, normal turgor. No rashes or lesions noted. Course - Re-evaluation Re-evalutation: Patient initially tachycardic with very dry mucous membranes. He also complains of vertigo symptoms. He does not have any other complaints at this time. CBC shows concentrated hemoglobin consistent with dehydration. Given 2 L normal saline bolus. Given meclizine, Zofran. EKG unremarkable except for tachycardia. Tachycardia resolved with IV fluids. Patient also has evidence of left ear serous effusion which appears to be contributing to his symptoms. His exam is benign otherwise. He tells me he had tightness with shortness of breath when he was very symptomatic but this was very atypical and he denies specific chest pain. After treatment with IV fluids, meclizine, patient fell asleep. He was easily aroused, he has no complaints, he got up, walked across the room without any difficulty or instability. He is requesting to be discharged. Based on his evaluation including chemistry, chest x-ray, 2- troponins, symptoms responding to treatment, I have a low suspicion of intracranial abnormality and ACS. Discussed expectations, treatment at home with meclizine and nasal spray for the effusion, and return precautions. I also discussed sleep apnea with this patient clearly has this, he became hypoxic when he fell asleep, he states he wears a CPAP at home. Stable at time of discharge. - Vital Signs Vital signs: Temp Pulse Resp BP Pulse Ox 99.2 F 118 H 19 134/85 H 99 01/25/19 18:12 01/25/19 18:12 01/26/19 00:01 01/26/19 00:00 01/26/19 00:09 - Laboratory Result Diagrams: 01/25/19 19:10 01/25/19 19:10 Laboratory results interpreted by me: 01/25/19 01/25/19 19:10 19:10 WBC 12.9 H RBC 6.30 H Hgb 17.6 H Hct 52.0 H RDW 15.9 H Absolute Neuts (auto) 9.3 H Potassium 3.4 L BUN 5 L Glucose 178 H - EKG Interpretation by Me Additional EKG results interpreted by me: EKG shows sinus tachycardia at a rate of 126, normal axis, QTC of 441. No T wave inversions or ST segment changes in consecutive leads. Discharge - Discharge Clinical Impression: Dehydration, Dizziness, Shortness of breath, Vertigo Condition: Stable Disposition: HOME, SELF-CARE Additional Instructions: Your general work-up is reassuring. Your evaluation is most consistent with an ear effusion and also vertigo. I recommend the meclizine as prescribed, take the nausea medication if needed with this, symptoms should gradually resolve. The nasal spray helps improve this faster as well. Improve your hydration at home. Avoid dehydrating products such as caffeinated drinks and sodas. Follow-up with primary care for additional management. Return if you worsen including severe worsening headache, vomiting, spiking fever, or any other concerning or worsening symptoms. Prescriptions: Meclizine HCl [Antivert 25 mg Tablet] 25 mg PO TID PRN #21 tablet PRN Reason: Fluticasone Propionate [Flonase Nasal [place] 50 Mcg/[place] 16 gm] 2 sprays NASL Q12 #1 inhaler Ondansetron [Zofran Odt 4 mg Tablet] 1 - 2 tab PO Q4H PRN #15 tab.rapdis PRN Reason: For Nausea/Vomiting Forms: Return to Work Referrals: TALAT BARRERA MD [Primary Care Provider] - Follow up as needed
--- NOTE | 2019-01-25 23:23 | EKG REPORT ---
SEVERITY:- BORDERLINE ECG - SINUS TACHYCARDIA BORDERLINE R WAVE PROGRESSION, ANTERIOR LEADS : Confirmed by: Miriam Ortega 25-Jan-2019 23:22:36
[2019-01-26 00:11] VITALS: BP 134/85
[2019-01-26] MEDS ORDERED: DIAZEPAM 5 MG TABLET PO ONE (00:31)
== END 2019-01-26 00:50 | disposition home or self-care (01) ==
LOC: ER 17:46
DX: E86.0 Dehydration (principal); R42 Dizziness and giddiness; R06.02 Shortness of breath; R07.89 Other chest pain; R11.10 Vomiting, unspecified; J45.909 Unspecified asthma, uncomplicated; R00.0 Tachycardia, unspecified; I10 Essential (primary) hypertension; F41.9 Anxiety disorder, unspecified; Z79.899 Other long term (current) drug therapy; Z79.52 Long term (current) use of systemic steroids; Z82.49 Family history of ischemic heart disease and other diseases of the circulatory system
CPT/HCPCS: 93005; 36415; 85025; 80053; 84484; 83880; 71046; 93010; J2405; J7030

== ENCOUNTER 2019-02-18 18:45 | Emergency (ER) | payer BC ==
[2019-02-18] MEDS ORDERED: GLUCAGON,HUMAN RECOMB 1 MG INJ IM ONE (18:53)
--- NOTE | 2019-02-18 18:55 | ER Document Report ---
ED Medical Screen (RME) - General Chief Complaint: Swallowed Foreign Body Stated Complaint: POSSIBLE TURKEY BONE STUCK IN THROAT Time Seen by Provider: 02/18/19 18:47 Primary Care Provider: TALAT BARRERA MD [Primary Care Provider] - Follow up as needed TRAVEL OUTSIDE OF THE [place] IN LAST 30 DAYS: No - HPI Notes: 02/18/19 18:54 Patient is a 48-year-old male with history of hypertension who presents complaining of a turkey bone feeling stuck in his throat/lower esophagus area. Patient states that he has been drinking plenty of fluids trying to get it down, but he feels like it is stuck. He is able to breathe without difficulty. Denies drug allergies. He has not had any hoarseness or drooling. No fever, chest pain. I have treated and performed a rapid initial assessment of this patient. A comprehensive ED assessment and evaluation of the patient, analysis of test results and completion of medical decision making process will be conducted by additional ED providers. PHYSICAL EXAMINATION: GENERAL: Well-appearing, well-nourished and in no acute distress. A&Ox4. Answers questions appropriately. Lungs: CTAB Throat: No obvious foreign body noted or airway compromise. - Related Data Allergies/Adverse Reactions: No Known Allergies Allergy (Verified 07/30/18 11:26) Past Medical History - Past Medical History Cardiac Medical History: Reports: Hx Hypercholesterolemia, Hx Hypertension Pulmonary Medical History: Reports: Hx Asthma Denies: Hx Tuberculosis Renal/ Medical History: Reports: Hx Kidney Stones. Denies: Hx Peritoneal Dialysis Psychiatric Medical History: Reports: Hx Anxiety Past Surgical History: Reports: Other - Vasectomy - Immunizations Hx Diphtheria, Pertussis, Tetanus Vaccination: No Physical Exam - Vital signs Vitals: Temp Pulse Resp BP Pulse Ox 98.1 F 67 18 166/95 H 97 02/18/19 18:50 02/18/19 18:50 02/18/19 18:50 02/18/19 18:50 02/18/19 18:50 Course - Vital Signs Vital signs: Temp Pulse Resp BP Pulse Ox 98.1 F 67 18 166/95 H 97 02/18/19 18:50 02/18/19 18:50 02/18/19 18:50 02/18/19 18:50 02/18/19 18:50 Doctor's Discharge - Discharge Referrals: TALAT BARRERA MD [Primary Care Provider] - Follow up as needed
--- NOTE | 2019-02-18 19:15 | RADIOLOGY REPORT (SQ) ---
EXAM DESCRIPTION: SOFT TISSUE NECK COMPLETED DATE/TIME: 02/18/2019 7:07 pm REASON FOR STUDY: possible foreign body COMPARISON: None. NUMBER OF VIEWS: Two views. TECHNIQUE: AP and lateral radiographic image of the soft tissues of the neck. LIMITATIONS: None. FINDINGS: EPIGLOTTIS: Normal. Contour normal. Aryepiglottic folds normal. PREVERTEBRAL SOFT TISSUES: Normal. No soft tissue swelling. SUBGLOTTIC AREA: Normal. No narrowing. RETROPHARYNGEAL SPACE: Normal. No soft tissue masses. BONES: No significant findings. LUNG APICES: Normal. OTHER: No radiopaque foreign body. No other significant finding. IMPRESSION: NEGATIVE STUDY OF THE SOFT TISSUES OF THE NECK. TECHNICAL DOCUMENTATION: JOB ID: [id number] [employer]- All Rights Reserved Reading location - IP/workstation name: [email or web address]
--- NOTE | 2019-02-18 19:15 | RADIOLOGY REPORT (SQ) ---
EXAM DESCRIPTION: CHEST 2 VIEWS COMPLETED DATE/TIME: 02/18/2019 7:07 pm REASON FOR STUDY: foreign body sensation throat- poss turkey bone COMPARISON: 01/25/2019 EXAM PARAMETERS: NUMBER OF VIEWS: two views TECHNIQUE: Digital Frontal and Lateral radiographic views of the chest acquired. RADIATION DOSE: NA LIMITATIONS: none FINDINGS: LUNGS AND PLEURA: No opacities, masses or pneumothorax. No pleural effusion. MEDIASTINUM AND HILAR STRUCTURES: No masses or contour abnormalities. HEART AND VASCULAR STRUCTURES: Heart normal size. No evidence for failure. BONES: No acute findings. HARDWARE: None in the chest. OTHER: No other significant finding. IMPRESSION: NO ACUTE RADIOGRAPHIC FINDING IN THE CHEST. TECHNICAL DOCUMENTATION: JOB ID: [id number] [employer]- All Rights Reserved Reading location - IP/workstation name: [email or web address]
[2019-02-18] MEDS ORDERED: MAG HYDROX/AL HYDROX/SIMETH SUSP 30 ML UDCUP PO ONE (20:46)
[2019-02-18] MEDS ORDERED: LIDOCAINE 2% VISCOUS SOLN 20 ML UDCUP PO ONE (20:46)
[2019-02-18] MEDS ORDERED: METOCLOPRAMIDE HCL ORAL SOLN 10 MG/10 ML UDCUP PO ONE (20:46)
--- NOTE | 2019-02-18 23:21 | ER Document Report ---
ED GI/ - General Chief Complaint: Swallowed Foreign Body Stated Complaint: POSSIBLE TURKEY BONE STUCK IN THROAT Time Seen by Provider: 02/18/19 18:47 Primary Care Provider: TALAT BARRERA MD [Primary Care Provider] - Follow up as needed Notes: Patient is a 48-year-old male that comes emergency department for chief complaint of possible turkey bone stuck in his throat. He states he was eating homemade soup that he had placed turkey into. He states that this happened at dinnertime, he states he has been drinking fluids without any trouble, he states that he was given a GI cocktail in triage and actually feels much better afterwards. Sensation almost completely resolved. He denies vomiting, difficulty breathing, or any other complaints. TRAVEL OUTSIDE OF THE [place] IN LAST 30 DAYS: No - Related Data Allergies/Adverse Reactions: No Known Allergies Allergy (Verified 07/30/18 11:26) Past Medical History - General Information source: Patient - Social History Smoking Status: Never Smoker Frequency of alcohol use: None Lives with: Spouse/Significant other Family History: Reviewed & Not Pertinent, CAD - Father [place] at 40's. CAD, CABG Patient has suicidal ideation: No Patient has homicidal ideation: No - Past Medical History Cardiac Medical History: Reports: Hx Hypercholesterolemia, Hx Hypertension Pulmonary Medical History: Reports: Hx Asthma Denies: Hx Tuberculosis Renal/ Medical History: Reports: Hx Kidney Stones. Denies: Hx Peritoneal Dialysis Psychiatric Medical History: Reports: Hx Anxiety Past Surgical History: Reports: Other - Vasectomy - Immunizations Hx Diphtheria, Pertussis, Tetanus Vaccination: No Review of Systems - Review of Systems Constitutional: No symptoms reported EENT: No symptoms reported Cardiovascular: No symptoms reported Respiratory: No symptoms reported Gastrointestinal: See HPI Genitourinary: No symptoms reported Male Genitourinary: No symptoms reported Musculoskeletal: No symptoms reported Skin: No symptoms reported Hematologic/Lymphatic: No symptoms reported Neurological/Psychological: No symptoms reported Physical Exam - Vital signs Vitals: Temp Pulse Resp BP Pulse Ox 98.1 F 67 18 166/95 H 97 02/18/19 18:50 02/18/19 18:50 02/18/19 18:50 02/18/19 18:50 02/18/19 18:50 - Notes Notes: GENERAL: Alert, interacts well. No acute distress. Laughing and well-appearing HEAD: Normocephalic, atraumatic. EYES: Pupils equal, round, and reactive to light. Extraocular movements intact. ENT: Oral mucosa moist, tongue midline. Oropharynx unremarkable. Airway patent. NECK: Full range of motion. Supple. Trachea midline. LUNGS: Clear to auscultation bilaterally, no wheezes, rales, or rhonchi. No respiratory distress. HEART: Regular rate and rhythm. No murmur ABDOMEN: Soft, non-tender. Non-distended. EXTREMITIES: Moves all 4 extremities spontaneously. No edema, normal radial and dorsalis pedis pulses bilaterally. No cyanosis. BACK: no cervical, thoracic, lumbar midline tenderness. No saddle anesthesia, normal distal neurovascular exam. Moves all extremities in full range of motion. NEUROLOGICAL: Alert and oriented x3. Normal speech. Cranial nerves II through XII grossly intact. PSYCH: Normal affect, normal mood. SKIN: Warm, dry, normal turgor. No rashes or lesions noted. Course - Re-evaluation Re-evalutation: Patient smiling and well-appearing. Symptoms resolved after GI cocktail. X-ray imaging of the neck and chest without any concerning finding. Patient is able to tolerate p.o. without any difficulty. Patient is clearly not obstructed, based on his evaluation I have a very low suspicion of lodged foreign body, most likely esophageal abrasion. I did discuss the details of this with the patient, discussed treatment options, follow-up, and return precautions. Patient states appreciation and agreement. Stable at time of discharge. - Vital Signs Vital signs: Temp Pulse Resp BP Pulse Ox 97.6 F 56 L 20 140/86 H 99 02/18/19 23:36 02/18/19 23:36 02/18/19 23:36 02/18/19 23:36 02/18/19 23:36 Discharge - Discharge Clinical Impression: Sensation of foreign body in esophagus Condition: Stable Disposition: HOME, SELF-CARE Additional Instructions: Your imaging and evaluation are reassuring. Most likely this was an abrasion in the esophagus and not a foreign body. Recommendation is to continue your current antacids, take the Carafate as prescribed, symptoms should resolve with time. Follow-up with primary care. Return if you worsen including severe pain, difficulty breathing, vomiting, fever, or any other concerning symptoms. Prescriptions: Sucralfate [Carafate 1 gm Tablet] 1 gm PO QID #20 tablet Referrals: TALAT BARRERA MD [Primary Care Provider] - Follow up as needed
[2019-02-18 23:37] VITALS: BP 140/86
== END 2019-02-18 23:33 | disposition home or self-care (01) ==
LOC: ER 18:45
DX: R19.8 Other specified symptoms and signs involving the digestive system and abdomen (principal); I10 Essential (primary) hypertension; J45.909 Unspecified asthma, uncomplicated
CPT/HCPCS: 99283; 96372; 71046; 70360; J1610; J3490

== ENCOUNTER 2019-04-13 03:38 | Emergency (ER) | payer BC ==
[2019-04-13] MEDS ORDERED: ACETAMINOPHEN 325 MG TABLET PO ONE ×2 (03:45→05:09)
[2019-04-13 04:43] LABS: A TYPE INFLUENZA AG NEGATIVE (NEGATIVE); B INFLUENZA AG NEGATIVE (NEGATIVE)
[2019-04-13] MEDS ORDERED: NORMAL SALINE 1000 ML 1,000 ML IV ONE (04:53)
[2019-04-13] MEDS ORDERED: IPRATROPIUM/ALBUTEROL 0.5-2.5 MG/3 ML AMPUL NEB ONE (05:10)
[2019-04-13] MEDS ORDERED: BENZONATATE 100 MG CAPSULE PO ONE (05:10)
[2019-04-13] MEDS ORDERED: ONDANSETRON HCL INJ/PF 4 MG/2 ML SDV IV ONE (05:11)
[2019-04-13] MEDS: BENZONATATE 100 MG CAPSULE PO ONE ×2 (05:34→05:39)
[2019-04-13 05:43] LABS: ABSOLUTE BASOPHILS # (AUTO) 0.1 10^3/uL (0.0-0.2); ABSOLUTE EOSINOPHILS # (AUTO) 0.1 10^3/uL (0.0-0.6); ABSOLUTE LYMPHOCYTES (AUTO) 0.7 10^3/uL (0.5-4.7); ABSOLUTE MONOCYTES (AUTO) 0.9 10^3/uL (0.1-1.4); ABSOLUTE NEUT (AUTO) 6.6 10^3/uL (1.7-8.2); BASOPHILS % (AUTO) 0.6 % (0-2); EOSINOPHILS % (AUTO) 0.8 % (0-6); HEMATOCRIT 46.2 % (37.9-51.0); HEMOGLOBIN 15.9 g/dL (13.5-17.0); LYMPHOCYTES % (AUTO) 8.5 % (13-45); MEAN CORPUSCULAR HEMOGLOBIN 29.4 pg (27.0-33.4); MEAN CORPUSCULAR HGB CONC 34.5 g/dL (32.0-36.0); MEAN CORPUSCULAR VOLUME 85 fl (80-97); MONOCYTES % (AUTO) 11.3 % (3-13); PLATELET COUNT 150 10^3/uL (150-450); RED BLOOD COUNT 5.43 10^6/uL (4.35-5.55); RED CELL DISTRIBUTION WIDTH 14.7 % (11.5-14.0); SEGMENTED NEUTROPHILS % (AUTO) 78.8 % (42-78); TOTAL CELLS COUNTED % (AUTO) 100 %; WHITE BLOOD COUNT 8.4 10^3/uL (4.0-10.5)
--- NOTE | 2019-04-13 05:45 | ER Document Report ---
ED Flu Like - General Chief Complaint: Flu Symptoms Stated Complaint: FLU LIKE SYMPTOMS Time Seen by Provider: 04/13/19 05:02 Primary Care Provider: TALAT BARRERA MD [Primary Care Provider] - Follow up in 3-5 days Notes: Patient is a 48-year-old male who presents emergency department with a chief complaint of flulike symptoms. His symptoms started yesterday. Patient states that he had some nausea, vomiting, and diarrhea. He has also had rhinorrhea, cough, and congestion. Patient has history of hypertension. TRAVEL OUTSIDE OF THE [place] IN LAST 30 DAYS: No - Related Data Allergies/Adverse Reactions: No Known Allergies Allergy (Verified 07/30/18 11:26) Past Medical History - General Information source: Patient - Social History Smoking Status: Never Smoker Family History: Reviewed & Not Pertinent, CAD - Father [place] at 40's. CAD, CABG Patient has suicidal ideation: No Patient has homicidal ideation: No - Past Medical History Cardiac Medical History: Reports: Hx Hypercholesterolemia, Hx Hypertension Pulmonary Medical History: Reports: Hx Asthma Denies: Hx Tuberculosis Renal/ Medical History: Reports: Hx Kidney Stones. Denies: Hx Peritoneal Dialysis Psychiatric Medical History: Reports: Hx Anxiety Past Surgical History: Reports: Other - Vasectomy - Immunizations Hx Diphtheria, Pertussis, Tetanus Vaccination: No Review of Systems - Review of Systems Notes: REVIEW OF SYSTEMS: CONSTITUTIONAL : See HPI. EENT: See HPI. CARDIOVASCULAR: Denies chest pain. RESPIRATORY: See HPI. GASTROINTESTINAL: Denies nausea, vomiting, and diarrhea. Denies abdominal pain. Denies constipation. GENITOURINARY: Denies difficulty urinating, burning, blood in urine, urgency or frequency. MUSCULOSKELETAL: Denies neck and back pain. Denies joint pain or swelling. SKIN: Denies rash, itchiness, or lesions HEMATOLOGIC : Denies easy bruising or bleeding. LYMPHATIC: Denies swollen, painful, enlarged glands. NEUROLOGICAL: Denies no numbness or tingling denies weakness. Denies headache. Denies altered mental status. Denies alteration in speech. PSYCHIATRIC: Denies stress, anxiety, alteration in sleep patterns, or depression. All other systems reviewed and negative. Physical Exam - Vital signs Vitals: Temp Pulse Resp BP Pulse Ox 102.6 F H 111 H 20 182/85 H 98 04/13/19 03:43 04/13/19 03:43 04/13/19 03:43 04/13/19 03:43 04/13/19 03:43 - Notes Notes: PHYSICAL EXAMINATION: GENERAL: Appears ill, no acute distress. HEAD: Normocephalic, atraumatic. EYES: PERRL, conjunctiva normal, all extraocular movements intact, sclera nonicteric ENT: Moist mucous membranes. Rhinorrhea noted. Edema and erythema noted to the nasal mucosa. NECK: Supple, no noticeable swelling, redness, rash. Normal range of motion. LUNGS: Slight expiratory wheezes noted bilaterally. CARDIOVASCULAR: S1-S2, regular rate, regular rhythm. Radial pulses 2+, normal. ABDOMEN: Normoactive bowel sounds. Soft, nontender, no guarding, no rebound tenderness, and no masses palpated. EXTREMITIES: Normal strength and range of motion, no pitting or edema. No cyanosis. NEUROLOGICAL: Moves all extremities upon command. Strength 5/5 in all extremities. PSYCH: Normal mood, normal affect. SKIN: Warm, dry. No rash, lesions, ulcerations noted. Normal skin turgor. Course - Re-evaluation Re-evalutation: 04/13/19 16:34 Hematology does not show a leukocytosis, but he does have a left shift. Chemistries had hemolyzed, therefore I ended up canceling them, as they were ordered in triage and are not necessary in this case of having symptoms starting earlier today. Patient's influenza screen is negative, although it is negative, I advised him that he most likely does have the flu. He will be sent home with supportive care. His fever has come down with tylenol. He states he still does not feel the greatest, but his fever has come down and he is able to tolerate oral fluids with Zofran. He received a liter of IV fluids here in the emergency department. He will also be sent home with an inhaler, Tessalon Perles, cetirizine, and Flonase to help with his symptoms. He will follow-up with his primary care provider in regards to this visit. Follow-up precautions were given. Verbal discharge instructions were given to the patient. They verbalized understanding. They are stable for discharge. - Vital Signs Vital signs: Temp Pulse Resp BP Pulse Ox 98.9 F 106 H 17 146/72 H 93 04/13/19 06:35 04/13/19 06:35 04/13/19 06:35 04/13/19 06:35 04/13/19 06:35 - Laboratory Result Diagrams: 04/13/19 05:02 04/13/19 05:02 Laboratory results interpreted by me: 04/13/19 05:02 RDW 14.7 H Lymph % (Auto) 8.5 L Seg Neutrophils % 78.8 H Discharge - Discharge Clinical Impression: Upper respiratory infection, viral, Nausea, Wheezing Vomiting Qualifiers: Vomiting type: unspecified Vomiting Intractability: non-intractable Nausea presence: with nausea Qualified Code(s): R11.2 - Nausea with vomiting, unspecified Diarrhea Qualifiers: Diarrhea type: unspecified type Qualified Code(s): R19.7 - Diarrhea, unspecified Condition: Stable Disposition: HOME, SELF-CARE Instructions: Antinausea Medication ([facility]), Intravenous (IV) Fluids ([facility]), Vomiting ([facility]) Additional Instructions: You were seen today in the emergency department for a cough, vomiting, and diarrhea. Your symptoms are most consistent with an upper respiratory viral infection. Please take acetaminophen 1000 mg and ibuprofen 600 mg every 6 hours as needed for any body aches or fever. You have been given cetirizine, medication to help with your runny nose. Take 1 tablet every day while you have symptoms. You have also been given Flonase, medication to help with the inflammation in your nose. Place 1 spray to each nostril twice a day. If you develop a fever greater than 100.4 F while on ibuprofen and acetaminophen, develop shortness of breath, difficulty breathing, or any symptoms that are worrisome to you, please return to the emergency department. You are being sent home with an albuterol inhaler. You can take 1 to 2 puffs every 4-6 hours as needed for shortness of breath. You are also being sent home with Tessalon Perles for your cough. For your nausea, you are being sent home with Zofran. You can take 1 to 2 tablets every 4-6 hours as needed for nausea or vomiting. Prescriptions: Benzonatate [Tessalon Perle 100 mg Capsule] 200 mg PO Q8HP PRN #40 cap PRN Reason: Cetirizine HCl [All Day Allergy] 10 mg PO DAILY #30 tablet Fluticasone Propionate [Flonase Nasal [place] 50 Mcg/[place] 16 gm] 2 sprays NASL DAILY #1 inhaler Ondansetron [Zofran Odt 4 mg Tablet] 1 - 2 tab PO Q4H PRN #15 tab.rapdis PRN Reason: For Nausea/Vomiting Referrals: TALAT BARRERA MD [Primary Care Provider] - Follow up in 3-5 days
[2019-04-13] MEDS ORDERED: IBUPROFEN 600 MG TABLET PO ONE (06:20)
[2019-04-13] MEDS ORDERED: ALBUTEROL SULFATE HFA (90 MCG/PUFF) 8 GM MDI (1 MDI/ER DISP) IH ONE (06:23)
[2019-04-13] MEDS ORDERED: ONDANSETRON ODT 4 MG TAB (6 TAB/ER DISP) PO PRN (06:24)
[2019-04-13 06:36] VITALS: BP 146/72
== END 2019-04-13 06:36 | disposition home or self-care (01) ==
LOC: ER 03:38
DX: J06.9 Acute upper respiratory infection, unspecified (principal); R06.2 Wheezing; R11.2 Nausea with vomiting, unspecified; R19.7 Diarrhea, unspecified; R05 Cough; I10 Essential (primary) hypertension; E78.00 Pure hypercholesterolemia, unspecified; Z87.442 Personal history of urinary calculi
CPT/HCPCS: 94640; 99283; 96361; 96374; 36415; 85025; 87804; J2405; J7030; J3490; J7620